=== PATIENT | female | born 1965 | race Caucasian/White ===

== ENCOUNTER 2016-11-20 06:42 | Inpatient (IN) | payer OTHER ==
[2016-11-17 08:52] VITALS: BMI 25.8
[2016-11-20] MEDS ORDERED: GENTAMICIN SO4 80 MG/2 ML VIAL ONE ×2 (07:32→11:58)
[2016-11-20] MEDS ORDERED: BUPIVACAINE HCL/PF 2.5 MG/ML - 30 ML VIAL IJ ONE (07:32)
[2016-11-20] MEDS ORDERED: LIDOCAINE HCL 1%, 10 MG/ML (20ML VIAL) ONE ×2 (07:32→07:50)
[2016-11-20] MEDS ORDERED: ceFAZolin SODIUM 1 GM VIAL ONE ×3 (07:32→13:41)
[2016-11-20] MEDS ORDERED: LIDOCAINE 1%-EPI 1:100,000 30 ML MDV IJ ONE (07:34)
[2016-11-20] MEDS ORDERED: EPINEPHrine 1:1,000 1 MG/1 ML - 30ML VIAL (INJECTION) ONE (07:50)
[2016-11-20] MEDS ORDERED: HEPARIN NA (PORCINE) 5,000 UNITS/ML 1ML VIAL ONE (08:03)
[2016-11-20] MEDS ORDERED: ROCURONIUM BROMIDE 50 MG/5 ML VIAL ONE ×3 (08:12→12:28)
[2016-11-20] MEDS ORDERED: MIDAZOLAM HCL 2 MG/2 ML SINGLE DOSE VIAL ONE ×3 (08:12)
[2016-11-20] MEDS ORDERED: PROPOFOL 20 ML ONE ×2 (08:12→16:14)
[2016-11-20] MEDS ORDERED: HEPARIN NA (PORCINE) 5,000 UNITS/ML 1ML VIAL SQ ONE ×3 (08:17)
[2016-11-20] MEDS ORDERED: HYDROmorphone HCL/PF 1 MG/ML VIAL (FOR PYXIS CHARGING ONLY) ONE ×3 (12:26→15:07)
[2016-11-20] MEDS ORDERED: HYDROmorphone *PCA* 10MG/50ML DISP.SYRIN PCA ONE ×2 (16:12→16:27)
[2016-11-20] MEDS ORDERED: ONDANSETRON 4 MG/2 ML VIAL IVPUSH PRN (18:56)
[2016-11-20] MEDS ORDERED: PROMETHAZINE HCL 25 MG/1 ML VIAL IVPUSH ONE (18:59)
[2016-11-20] MEDS ORDERED: LACTATED RINGERS SOLUTION 1,000 ML IV SCH (19:00)
[2016-11-20] MEDS ORDERED: PROMETHAZINE HCL 25 MG/1 ML VIAL ONE (19:16)
[2016-11-20] MEDS: ACETAMINOPHEN 1000 MG/100 ML VIAL (NON FORMULARY) IVPB PRN (19:30)
[2016-11-20] MEDS ORDERED: oxyCODONE HCL 5 MG TABLET PO PRN (19:57)
[2016-11-20] MEDS: HYDROmorphone *PCA* 10MG/50ML DISP.SYRIN PCA SCH (20:00)
[2016-11-20] MEDS ORDERED: ENOXAPARIN NA (PORCINE) 40 MG/0.4 ML DISP.SYRIN SQ ONE (20:30)
[2016-11-21] MEDS ORDERED: TRIMETHOBENZAMIDE HCL 200MG/2ML INJ IM PRN (00:29)
[2016-11-21] MEDS: CEFAZOLIN 1 GM in DEXTROSE 5%-WATER - 50 ML IVPB SCH ×3 (01:08→22:41)
[2016-11-21] MEDS: ACETAMINOPHEN 1000 MG/100 ML VIAL (NON FORMULARY) IVPB PRN (08:15)
[2016-11-21] MEDS: DOXYCYCLINE HYCLATE 100 MG CAPSULE PO SCH ×2 (10:00→19:17)
[2016-11-21] MEDS: oxyCODONE HCL 10 MG SUSTAINED ACTING TABLET PO SCH ×2 (11:15→21:38)
[2016-11-21] MEDS: DOCUSATE SODIUM 100 MG CAPSULE (FP) PO SCH ×2 (12:00→21:38)
[2016-11-21] MEDS ORDERED: oxyCODONE HCL 5 MG TABLET PO PRN (12:00)
[2016-11-21] MEDS ORDERED: PROMETHAZINE HCL 25 MG/1 ML VIAL IVPUSH PRN (12:59)
[2016-11-21] MEDS: oxyCODONE HCL 5 MG TABLET PO PRN ×3 (14:59→19:17)
[2016-11-21] MEDS: HYDROmorphone *PCA* 10MG/50ML DISP.SYRIN PCA SCH (19:09)
[2016-11-21] MEDS: diphenhydrAMINE HCL 25 MG CAPSULE (FP) PO PRN (19:17)
[2016-11-21] MEDS ORDERED: ENOXAPARIN NA (PORCINE) 40 MG/0.4 ML DISP.SYRIN SQ SCH (22:30)
[2016-11-21] MEDS ORDERED: CEFAZOLIN (PRE-DOCKED) 1 GM in DEXTROSE 5%-WATER - 50 ML IVPB SCH (22:30)
[2016-11-21] MEDS: ACETAMINOPHEN 325 MG TABLET (FP) PO PRN (22:41)
[2016-11-22] MEDS: diphenhydrAMINE HCL 25 MG CAPSULE (FP) PO PRN ×3 (02:26→15:45)
[2016-11-22] MEDS: oxyCODONE HCL 5 MG TABLET PO PRN ×2 (02:30→18:31)
[2016-11-22] MEDS: CEFAZOLIN 1 GM in DEXTROSE 5%-WATER - 50 ML IVPB SCH ×2 (06:14→14:33)
[2016-11-22] MEDS: DOCUSATE SODIUM 100 MG CAPSULE (FP) PO SCH (09:40)
[2016-11-22] MEDS: oxyCODONE HCL 10 MG SUSTAINED ACTING TABLET PO SCH (09:40)
[2016-11-22] MEDS: DOXYCYCLINE HYCLATE 100 MG CAPSULE PO SCH ×2 (09:41→18:32)
[2016-11-22] MEDS: ACETAMINOPHEN 325 MG TABLET (FP) PO PRN ×2 (09:48→15:45)
[2016-11-22 14:24] VITALS: BP 103/62; PULSE 103; TEMP 99.2
--- NOTE | 2016-11-22 16:52 | PN ---
Progress Note (short form) - Note Progress Note: Patient doing well. Afebrile with stable vital signs. Patient feels well. Vivar controlled with oxycontin regularly and oxycodone for breakthrough pain. Patient ambulating today. Pain and nausea are improved. On exam: dressings changed, all wounds clean, drains all serosanguinous. No signs of infection, no hematoma, no seroma. Compression garment replaced. No tenderness on palpation of calves, no significant lower extremity swelling. Plan: Patient was admitted for post op pain and nausea. Good oral intake. Pain improved with PSYCH RN, then transitioned to Oxycontin bid with oxycodone for breakthrough pain. Instructions provided both verbal and written. Patient advised to call with any questions.
[2016-11-22] MEDS ORDERED: diphenhydrAMINE HCL 25 MG CAPSULE (FP) PO ONE (18:30)
[2016-11-22] MEDS ORDERED: ENOXAPARIN NA (PORCINE) 40 MG/0.4 ML DISP.SYRIN SQ ONE (20:00)
--- NOTE | 2016-11-23 08:14 | SURG ---
Surgery [facility] Note Wil[facility] Weaver: José Luis Neal PA-C Date of Service: 11/20/16 Diagnosis: History of breast cancer, breast asymmetry after breast surgery Procedure: Bilateral revision of reconstructed breasts with implant exchange, capsulotomy, fat grafting I was present for the entirety of the operative procedure. For further detail, please refer to operative report. Visit type - Case Type Case Type: Scheduled Admission - New patient This patient is new to me today: Yes Date on this admission: 11/23/16
--- NOTE | 2016-11-25 11:21 | PATH ---
Surgical Pathology Report Patient Name: LETI ALMEIDA Med. Rec. #: [id number] /Age/Gender: 1965 (Age: 51) / F Account: [id number] [facility] Taken: 11/20/2016 Received: 11/20/2016 Reported: 11/25/2016 Physicians: Bhavana Patricia M.D. Specimen(s) Received A: BREAST EXPLANTS B: ABDOMINAL SKIN AND TISSUE C: LEFT BREAST SKIN AND TISSUE Clinical History History of breast cancer, breast asymmetry, cosmetic Final Diagnosis A. BREAST EXPLANTS: IMPLANTS x2, DESCRIBED (GROSS EXAM). B. ABDOMINAL SKIN AND TISSUE: SKIN AND SUBCUTANEOUS TISSUE (GROSS EXAM). C. SKIN AND TISSUE, LEFT BREAST: BENIGN SKIN. Electronically Signed Sameer Nicole M.D. Gross Description A. Received in formalin labeled "breast explants" are 2 clear, rubbery, disc-shaped objects, consistent with breast implants. The specimen is average 15 cm in diameter and 4 centimeters in depth. No soft tissue is present. No sections are submitted, gross only. B. Received in formalin labeled "abdominal skin and tissue" is a 687 g, 30.0 x 2.5 x 2.0 cm aggregate of multiple smith, irregular, unoriented portions of skin with underlying soft tissue. The epidermal surfaces are unremarkable. Sectioning reveals homogeneous yellow, smooth fat. No lesions are identified. No sections are submitted, gross only. C. Received in formalin labeled "left breast skin and tissue" are 2 smith, irregular, unoriented portions of skin measuring 1.0 x 0.4 x 0.2 cm and 1.5 x 0.8 x 0.1 cm. No lesions are identified. The specimens are sectioned and promotions representative sections are submitted in one cassette. 11/23/201611/23/2016
--- NOTE | 2017-02-01 10:39 | OP ---
DATE OF OPERATION: 11/21/2016 PREOPERATIVE DIAGNOSES: Breast asymmetry, capsular contracture, more laxity left reconstructed breast versus right reconstructed breast, abdominal skin excess, diastasis recti, localized adiposity, abdomen and flanks, localized adiposity, right axillary fold area. POSTOPERATIVE DIAGNOSES: Breast asymmetry, capsular contracture, more laxity left reconstructed breast versus right reconstructed breast, abdominal skin excess, diastasis recti, localized adiposity, abdomen and flanks, localized adiposity, right axillary fold area. PROCEDURE: Revision bilateral breast reconstruction with fat grafting to bilateral reconstructed breasts from an abdomen and flank donor site, removal of bilateral breast implants, replacement with bilateral silicone breast implants placed under the muscle, bilateral breast capsulotomy as well as capsulorrhaphy, placement of bilateral breast acellular dermal matrix, abdominoplasty with rectus plication and umbilical relocation, liposuction of the abdomen and bilateral flanks, liposuction of the right axillary fat pad, fat grafting to bilateral buttocks and lateral thighs. SURGEON: Bhavana Patricia MD AUDIT MANAGER: CHELY Ford INDICATION FOR PROCEDURE: The patient is status post bilateral mastectomies for breast cancer with tissue model builder display, reconstruction with subsequent exchange of her implants. Patient feels her left breast implant pocket is too large and would like it to be higher and tighter and would like her bilateral implants to be raised. Consent was obtained for her surgery and risks reviewed which include, but are not limited to: Infection, bleeding, persistent asymmetry, need for further surgery, fluid collection, capsular contracture, blood clot in her leg, groins, and her lung. All questions were answered. Patient and her daughter helped choose implant size and they agreed to proceed. IMPLANTS: Left and right breast implants 410 anatomic textured 670-mL implants. Left implant reference number [id number], serial number [id number]. Right implant reference number [id number], serial number [id number]. Contour large perforated AlloDerm Select placed bilaterally. Left side lot number [id number], expiration August 2018, reference number [id number]. Right side lot [id number], expiration August 2018, reference number [id number]. DESCRIPTION OF PROCEDURE: Patient was taken to the operating room and placed supine on the operating room table. Timeout procedure was performed. Anesthesia induced general endotracheal anesthesia. Prophylactic intravenous antibiotics were provided. TEDs and sequential compression devices were placed on the bilateral lower extremities for deep venous thrombosis prophylaxis. Attention was first turned to the breasts. Left breast inferolateral incision was made. Skin excision was planned in this area and passed off the table and sent for pathology. Implant was removed and passed off the field and sent for pathology. The implant was intact. The right scar was opened. The right breast implant was removed and passed off the field and sent for pathology. Bilateral superomedial capsulotomy was performed with electrocautery with care to protect the overlying skin. The wound was copiously irrigated with Ancef, bacitracin, gentamicin irrigation. Lateral inferior capsulorrhaphy was performed with sqaspv-jq-mrlkp 0 buried PDS and a 2nd layer of 2-0 buried ikqrdx-pi-orhln PDS sutures. More capsulorrhaphy was performed on the left side since this had more laxity than the right side. The 410 anatomic breast implant size 670 mL was chosen. This would be reinforced inferiorly with acellular dermal matrix which was soaked in 2 water baths and placed in the wound. AlloDerm Contour large perforated was placed on both the left and right sides and sutured with horizontal mattress 2-0 Vicryl sutures. Gloves were changed. Hemostasis was achieved, antibiotic irrigation utilized, and the 410 anatomic implants were placed in the proper orientation within the implant pocket with an inferior AlloDerm sheet bilaterally. Bilateral breast wounds were closed with a deep layer of 2-0 Vicryl sutures, interrupted intradermal buried 3-0 Monocryl, and running 4-0 Monocryl in a subcuticular manner. Wounds were reinforced with simple interrupted 4-0 nylon sutures. Tumescent was instilled through an incision made with a No. 15 blade, 2 in the right axillary fat roll. Approximately 100 mL of tumescent was used and 50 mL of fat was liposuctioned with the 4-mm cannula with care to preserve underlying structures. Attention was then turned to the abdominoplasty where the liposuction sites were incised with a No. 15 blade in the planned abdominoplasty incisions. Abdominoplasty incision was made with a No. 10 blade and a skin flap was raised to the xiphoid. Umbilicus was first incised with a No. 11 blade. No hernias were identified. Rectus plication was performed both superior and inferiorly with qddcmw-wa-hdyfb 0 PDS in a buried manner and a superficial layer of 2 PDS running horizontal mattress sutures. Hemostasis was achieved with electrocautery. 15 degrees to take tension off the wound. Drains were placed in the bilateral pelvic area and sutured with 3-0 nylon sutures. Left abdominal skin and right abdominal skin were excised and passed off the field. They measured approximately 340 g each. The umbilicus was brought through an inverted "U" incision slightly superior on the anterior-superior iliac spine and in the midline. Abdominoplasty wound was closed with a deep layer of buried 2-0 Vicryl sutures in the Herb fascia, interrupted intradermal buried 3-0 Monocryl, running 4-0 Monocryl in a subcuticular manner. The V-Loc 120 was used to help reinforce the lateral and central areas as well. Simple interrupted 4-0 nylon sutures were used to reinforce the areas of maximal tension. Umbilicus was sutured with interrupted intradermal buried 3-0 Monocryl, running 4-0 Monocryl in a subcuticular manner, and simple interrupted 4-0 nylon sutures. Prior to the abdominoplasty, during the liposuction approximately 2 L of tumescent was utilized and liposuction aspirate was approximately 1950 mL (approximately 1750 mL of fat). Body jet was used to process the fat. No. 15 blades were used to make the incision and fat grafting was performed in the bilateral breast area, more on the left than the right since the left had a larger implant pocket. Left fat grafting was 165 mL, right fat grafting 110 mL with care to protect the underlying implant pocket. Fat grafting sites were sutured with simple interrupted 5-0 nylon sutures. Bilateral breast wounds and abdominoplasty wounds were covered with Dermabond. Xeroform was placed on the umbilicus, 4 x 4 gauze, ABD pads. Please note that the patient was to have planned upper buttock and back liposuction. However, her blood pressure was low and Anesthesia recommended injecting the harvested fat and not going prone with the patient due to her blood pressure. Of note, patient was stable throughout the surgery. Patient was placed in the lateral decubitus position on either side and the fat which was harvested from the abdomen was injected into the buttock from a lazy lateral decubitus position on each side as well as the lateral thighs. The harvested fat was injected, 240 mL on the left side and 240 mL on the right side, through an inferior gluteal incision made with a 15 blade as well as a flank incision. Care was taken to remain superficial. Lateral thigh and lateral buttock contour was excellent. These wounds were closed with simple interrupted 5-0 nylon sutures and covered with Dermabond, Telfa, and Tegaderms. Patient was placed supine. The patient was extubated and taken to the recovery room in stable condition postoperatively. Bj [id number]
--- NOTE | 2017-02-01 11:31 | OP ---
DATE OF OPERATION: 11/21/2016 PREOPERATIVE DIAGNOSIS: 1. Status post mastectomy with bilateral breast reconstruction with asymmetry and a ptotic left breast compared to the right. Patient desires more superior fullness with her implants and a slightly larger implant. 2. Capsular contracture bilateral breasts. 3. Excess abdominal skin with localized adiposity of abdomen and flanks and diastasis recti. 4. Patient desires improved contour of buttock and hips. POSTOPERATIVE DIAGNOSIS: 1. Status post mastectomy with bilateral breast reconstruction with asymmetry and a ptotic left breast compared to the right. Patient desires more superior fullness with her implants and a slightly larger implant. 2. Capsular contracture bilateral breasts. 3. Excess abdominal skin with localized adiposity of abdomen and flanks and diastasis recti. 4. Patient desires improved contour of buttock and hips. PROCEDURE: 1. Fat grafting bilateral superomedial breasts for improved contour. 2. Revision of bilateral reconstructed breasts with removal of breast implants, replacement of silicone breast implants; lateral capsulorrhaphy, left side greater than right side, for medialization of the implant pocket; bilateral capsulotomy superomedially of the implant; skin excision of left inferolateral breast implant pocket versus the right; acellular dermal matrix placement of bilateral breasts; abdominoplasty with rectus plication in umbilical location; liposuction of abdomen and flanks; fat grafting bilateral lateral thighs of 240 mL bilaterally of fat grafting of the bilateral superomedial breast, left side 165 mL, right side 110 mL. 3. Liposuction of right axillary fat pad. SURGEON: Chapito Patricia M.D. DIGITAL STRATEGY DIRECTOR: Ge Ford ANESTHESIA: General endotracheal anesthesia. SPECIMENS: Bilateral breast implants, abdominal skin and tissue bilaterally, left breast skin and tissue. INDICATION FOR PROCEDURE: The patient is status post bilateral mastectomy after breast cancer was found in a breast reduction specimen with tissue contract associate placement in exchange for implants. Patient feels her left breast is more ptotic than the right and desires more support and a larger breast implant, since she does not feel her implant fills her breast pocket, as the tissues have relaxed over time. Consent was obtained for revision of bilateral breast reconstruction, fat grafting to bilateral reconstructed breasts for possible abdomen/flank/back donor sites, removal of bilateral breast implants and replacement with bilateral silicone breast implants, possible bilateral breast capsulectomy and/or capsulotomy and/or capsulorrhaphy, possible placement of bilateral or left or right acellular dermal matrix to breast, abdominoplasty with rectus plication and umbilical relocation, liposuction of abdomen and flanks bilaterally and upper buttock and liposuction in mid back and right axillary fat pad with fat grafting to bilateral buttocks. Risks of the procedure were reviewed and including but not limited to infection, bleeding, scarring, fluid collection, blood clots in the leg going to lung for which the patient will be given chemotherapy prophylaxis with Lovenox postoperatively and heparin pre- and postoperatively, wound healing problems, capsular contracture, persistent asymmetry, fluid collection, pain, need to fat graft the buttock in the future because not all the fat stays over time. All the patient's questions were answered, and she agreed to proceed. DESCRIPTION OF PROCEDURE: Patient was taken to the operating room and placed supine on the operating room table. Timeout procedure was performed. Anesthesia induced general endotracheal anesthesia. Prophylactic intravenous antibiotics were provided. Attention was first turned to the excision of the inferolateral tissue, left greater than right, of the breast which was excised with number 15 blade and then passed off the field and sent for pathology. Capsule sent for pathology. There was more tissue. There was no skin excision on the right side, but skin excision on the left side performed. Breast implants 600 mL were removed and passed off the field and sent for pathology. Superomedial breast capsulotomy was performed to medialize the area. Inferolateral capsulorrhaphy with buried swwsct-bs-ysrbh 0 PDS and superficial jmxsjr-co-ufwkx 2-0 PDS was performed to medialize the breast implant. Bilateral breast implants were placed after irrigating the pockets with Ancef, gentamicin, and bacitracin triple antibiotic solution. Gloves were changed. This was Natrelle 410 cohesive anatomic implant 670 mL placed bilaterally (left implant reference number [id number] serial number [id number], right side reference number [id number] serial number [id number]). Implant pockets were temporarily closed, and patient was sat up and with good symmetry. Patient was replaced supine. Implant pockets were closed with deep layer of 2-0 Vicryl sutures, interrupted interdermal buried 3-0 Monocryl, running 4-0 Monocryl in subcuticular manner, as well as simple interrupted 4-0 nylon sutures. Attention was then turned to liposuction of right axillary fat roll with small incision made with a 15 blade. Small amount of tumescent was utilized and axillary fat roll was aspirated. Body-Jet liposuction system was used for this procedure. At the conclusion of the bilateral breast reconstruction, liposuction was performed on the abdomen and bilateral flanks. The liposuction entry sites were created with a number 15 blade which were placed within the planned abdominoplasty incision. Tumescent was infiltrated and liposuction was performed with a Body-Jet. Approximately 2 L of tumescent was infiltrated and approximately 1.75 mL of fat was aspirated (total aspirate was 2000 mL, 250 mL of serosanguineous fluid were aspirated). The fat was processed for fat grafting to the bilateral breasts. A number 15 blade was used to make entry points for the fat grafting cannula, and left superomedial breast was fat grafted with 165 mL and right superomedial breast was fat grafted with 110 mL. More was placed on the left side, which had more skin per patient report. Please note that acellular dermal matrix was used to support the implant pocket bilaterally; this was sutured to the implant pocket with horizontal mattress 2-0 Vicryl sutures. Bilateral Alloderm with a contour large perforated on the right side, lot number [id number], expiration 08/2018, reference number [id number], left side was lot [id number], expiration 08/2018, reference number [id number]. These were soaked in 2 water baths prior to placement into the breast implant pockets. Breast wounds were reinforced with Dermabond, covered with 4x4, gauze, and ABD pads. Attention was then turned to the abdominoplasty, where the inferior abdominoplasty incision was incised with number 10 blade and the umbilicus was incised with a number 11 blade. Abdominoplasty skin flap was raised up to the xiphoid. Rectus plication was performed in 2 layers with a deep layer of jonxxc-ct-rvhou buried 0 PDS and running horizontal mattress 2-0 PDS. This provided good contour. There were no hernias. Bed was flexed approximately 15 degrees. Drains were placed in lateral pubic area, one on each side, and sutured with 3-0 nylon suture. Right and left abdominal skin was excised for good contour, passed off the field, and sent to Pathology. CHAPITO PATRICIA M.D. MR/[id number]
== END 2016-11-22 22:15 | disposition home or self-care (01) | DRG 581 ==
LOC: FASU 06:42 → FM/S 20:07
PROVIDERS: ADMIT Surgery; ATTEND Surgery
PROC: 0HWU0JZ Revision of Synthetic Substitute in Left Breast, Open Approach (ICD-10-PCS; principal; 2016-11-21)
PROC: 0JR Subcutaneous Tissue and Fascia, Replacement (ICD-10-PCS; 2016-11-21)
PROC: 0HWT0JZ Revision of Synthetic Substitute in Right Breast, Open Approach (ICD-10-PCS; 2016-11-21)
PROC: 0HNV0ZZ Release Bilateral Breast, Open Approach (ICD-10-PCS; 2016-11-21)
PROC: 0J083ZZ Alteration of Abdomen Subcutaneous Tissue and Fascia, Percutaneous Approach (ICD-10-PCS; 2016-11-21)
DX: N64.89 Other specified disorders of breast (principal); Z85.3 Personal history of malignant neoplasm of breast
CPT/HCPCS: 88300-TC; 88302-TC; 94760; J1644

== ENCOUNTER 2017-09-14 00:46 | Emergency (ER) | payer OTHER ==
--- NOTE | 2017-09-14 00:52 | PDOC ---
History of Present Illness - General Chief Complaint: Pain, Acute Stated Complaint: CHEST CAVITY PAIN X 2 DAYS Time Seen by Provider: 09/14/17 00:51 - History of Present Illness Initial Comments: This 52-year-old woman with a history of breast carcinoma and 2 weeks s/p breast reconstruction surgery presents with 2 day history of pleuritic chest pain. Patient states that as she was walking in a store yesterday afternoon, she had sudden onset of pleuritic chest pain in the mid substernal area. The severe pain lasted approximately 5 minutes and resolved spontaneously. Since then, she has had intermittent episodes of this pain which occurs in the same area and lasts approximately same period of time. Pain is not related to position or exertion. She does feel shortness of breath during the times of pain but otherwise is breathing normally. She has not had any fever/chills, cough, lower extremity pain or swelling. She has not been on any anticoagulation since her most recent surgery. No previous history of thromboembolic disorder. Past History - Past Medical History Allergies/Adverse Reactions: Allergies Allergy/AdvReac Type Severity Reaction Status Date / Time cat dander Allergy Intermediate NASAL Verified 08/26/17 10:23 CONGESTION/SNEEZING kiwi Allergy Intermediate Verified 08/26/17 10:23 No Known Drug Allergies Allergy Verified 08/26/17 10:23 Home Medications: Ambulatory Orders Oxycodone HCl/Acetaminophen [Oxycodone-Acetaminophen 10-325] 1 each PO TID PRN 09/30/15 Cefadroxil [Cefadroxil] 500 mg PO DAILY 09/14/17 Clindamycin [Cleocin -] 600 mg PO Q6H 09/14/17 Anemia: No Asthma: No Cancer: Yes (LEFT BREAST CA 2015,SX--NO CHEMO/RT) Cardiac Disorders: No CVA: No COPD: No CHF: No Dementia: No Diabetes: No GI Disorders: No Disorders: No HTN: No Hypercholesterolemia: No Liver Disease: No Seizures: No Thyroid Disease: No - Surgical History Abdominal Surgery: Yes (SEE BELOW) Appendectomy: No Cardiac Surgery: No Cholecystectomy: No Lung Surgery: No Neurologic Surgery: No Orthopedic Surgery: No - Suicide/Smoking/Psychosocial Hx Smoking History: Never smoked Have you smoked in the past 12 months: No Hx Alcohol Use: Yes (VERY RARE) Drug/Substance Use Hx: Yes Substance Use Type: Alcohol, Prescribed Hx Substance Use Treatment: No Review of Systems - Review of Systems Able to Perform ROS?: Yes Comments:: 12 point review of systems is negative except for what is noted in the history of present illness *Physical Exam - Physical Exam Comments: GENERAL: Adult female, alert and oriented 3, speaking in full sentences without respiratory distress Vital signs as noted: Heart rate 82/minute; pulse oximetry on room air 100% respiratory rate 16/minute HEAD: Normal with no signs of trauma. EYES: PERRLA, EOMI, sclera anicteric, conjunctiva clear. ENT: Ears normal, nares patent, oropharynx clear without exudates. Moist mucous membranes. NECK: Normal range of motion, supple without lymphadenopathy, JVD, or masses. CHEST WALL: Intact surgical wound lateral and inferior aspects of left breast, healing well No erythema/tenderness/discharge from incision; no fluctuance LUNGS: Breath sounds equal, clear to auscultation bilaterally. No wheezes, and no crackles. HEART:Regular rate and rhythm, normal S1 and S2 without murmur, rub or gallop. ABDOMEN:.normal bowel sounds No guarding,tenderness or rebound.No masses No distention. EXTREMITIES: Normal range of motion, no edema. No clubbing or cyanosis. No erythema, or tenderness. NEUROLOGICAL: Cranial nerves II through XII grossly intact. Normal speech. No focal neurological deficits. MUSCULOSKELETAL: Back non-tender to palpation, no CVA tenderness SKIN: Warm, Dry, normal turgor, no rashes or lesions noted. ED Treatment Course - LABORATORY CBC & Chemistry Diagram: 09/14/17 01:00 09/14/17 01:00 Progress Note - Progress Note Progress Note: CT angiogram of the chest performed to rule out pulmonary embolism or other acute vascular abnormalities. Study is normal without evidence of thromboembolic process. Results discussed with patient and with her plastic surgeon, Dr. Patricia. She should follow-up with her surgeon as scheduled. She should return to the emergency room if she has worsening of her pain or develops shortness of breath/ cough/fever *DC/Admit/Observation/Transfer Diagnosis at time of Disposition: Atypical chest pain - Discharge Dispostion Disposition: HOME Condition at time of disposition: Stable - Referrals Referrals: Bhavana Patricia MD [Staff Physician] - - Patient Instructions Printed Discharge Instructions: DI for Atypical Chest Pain Additional Instructions: Continue medications as prescribed Follow-up with as arranged Return to ER if you have recurrent severe chest pain or experience shortness of breath/fever/cough - Post Discharge Activity
[2017-09-14 01:08] VITALS: BP 117/80; PULSE 82; TEMP 97.8; BMI 23.8
[2017-09-14 02:10] LABS: BASO % 0.6 % (0-2.0); EOS % 2.8 % (0-4.5); HEMATOCRIT 35.6 % (32.4-45.2); HEMOGLOBIN 12.2 GM/dL (10.7-15.3); LYMPH % 35.9 % (8-40); MCH 32.7 pg (25.7-33.7); MCHC 34.4 g/dl (32.0-36.0); MEAN CELL VOLUME 95.2 fl (80-96); MEAN PLT VOLUME 7.4 fl (7.5-11.1); MONO % 7.5 % (3.8-10.2); NEUT % 53.2 % (42.8-82.8); PLATELET COUNT 388 K/MM3 (134-434); RBC 3.74 M/mm3 (3.60-5.2); RDW 13.8 % (11.6-15.6); WHITE BLOOD COUNT 6.1 K/mm3 (4.0-10.0)
[2017-09-14 02:14] LABS: URINE APPEARANCE CLEAR; URINE BILIRUBIN NEGATIVE (NEGATIVE); URINE BLOOD NEGATIVE (NEGATIVE); URINE COLOR LTYELLOW; URINE GLUCOSE (UA) NEGATIVE (NEGATIVE); URINE KETONE NEGATIVE (NEGATIVE); URINE NITRITE NEGATIVE (NEGATIVE); URINE PROTEIN NEGATIVE (NEGATIVE); URINE UROBILINOGEN NEGATIVE mg/dL (0.2-1.0)
[2017-09-14 02:21] LABS: URINE LEUK ESTERASE 2+ (NEGATIVE)
[2017-09-14 02:22] LABS: EPI CELLS FEW /HPF (FEW); URINE BACTERIA FEW /hpf (NONE SEEN); URINE MUCUS FEW
[2017-09-14 02:30] LABS: INR 1.05 (0.82-1.09); PROTHROMBIN TIME (PATIENT) 11.9 SEC (9.98-11.88)
[2017-09-14 02:42] LABS: ALBUMIN 3.4 g/dl (3.4-5.0); ANION GAP 12 (8-16); BILIRUBIN,TOTAL 0.2 mg/dL (0.2-1.0); BLOOD UREA NITROGEN 13 mg/dL (7-18); CALCIUM 8.2 mg/dL (8.5-10.1); CHLORIDE 104 mmol/L (98-107); CO2 25 mmol/L (21-32); CREATININE 0.7 mg/dL (0.55-1.02); GLUCOSE,RANDOM 79 mg/dL (74-106); POTASSIUM 4.3 mmol/L (3.5-5.1); SGOT/AST 19 U/L (15-37); SGPT/ALT 23 U/L (12-78); SODIUM 141 mmol/L (136-145); TOT PROT 7.5 g/dl (6.4-8.2)
[2017-09-14 02:45] LABS: ALK PHOS 170 U/L (45-117)
== END 2017-09-14 03:55 | disposition home or self-care (01) ==
LOC: FER 00:46
DX: R07.89 Other chest pain (principal); Z85.3 Personal history of malignant neoplasm of breast
CPT/HCPCS: 36415; 71275-TC; 80053; 81003; 81015; 82550; 84484; 85025; 85610; 99282-25

== ENCOUNTER 2017-09-16 14:39 | Inpatient (IN) | payer OTHER ==
--- NOTE | 2017-09-16 14:46 | PDOC ---
History of Present Illness - General Chief Complaint: Wound Stated Complaint: left breast pain,redness and swelling s/p surgery Time Seen by Provider: 09/16/17 14:42 History Source: Patient - History of Present Illness Initial Comments: 52 year old female with PMH of breast cancer (stage I s/p mastectomy (years prior) 17 days s/p implant/ cosmetic revision of left breast) presenting with chills, pain, swelling, and redness of her left breast surgical site. She presented to our ED on Wednesday complaining of chest pain and was CT scanned for PE (negative) then sent home. She was placed on Clyndamicin for a few days as well and stated that her chest pain slightly improved since Wednesday but still has chills. During her visit today with her plastic surgeon there was concern for a skin/ soft tissue infection of the left breast surgical site so she was sent to the ED for further evaluation. Denies objective fevers, nausea, vomiting , diarrhea, drainage from the surgical site, or other sick symptoms. 09/16/17 15:04 Past History - Past Medical History Allergies/Adverse Reactions: Allergies Allergy/AdvReac Type Severity Reaction Status Date / Time cat dander Allergy Intermediate NASAL Verified 09/16/17 14:40 CONGESTION/SNEEZING kiwi Allergy Intermediate Verified 09/16/17 14:40 No Known Drug Allergies Allergy Verified 09/16/17 14:40 Home Medications: Ambulatory Orders Oxycodone HCl/Acetaminophen [Oxycodone-Acetaminophen 10-325] 1 each PO TID PRN 09/30/15 Cefadroxil [Cefadroxil] 500 mg PO DAILY 09/14/17 Anemia: No Asthma: No Cancer: Yes (LEFT BREAST CA 2015,SX--NO CHEMO/RT) Cardiac Disorders: No CVA: No COPD: No CHF: No Dementia: No Diabetes: No GI Disorders: No Disorders: No HTN: No Hypercholesterolemia: No Liver Disease: No Seizures: No Thyroid Disease: No - Surgical History Abdominal Surgery: Yes (SEE BELOW) Appendectomy: No Cardiac Surgery: No Cholecystectomy: No Lung Surgery: No Neurologic Surgery: No Orthopedic Surgery: No - Suicide/Smoking/Psychosocial Hx Smoking History: Never smoked Have you smoked in the past 12 months: No Hx Alcohol Use: Yes (VERY RARE) Drug/Substance Use Hx: Yes Substance Use Type: Alcohol, Prescribed Hx Substance Use Treatment: No Review of Systems - Review of Systems Constitutional: Yes: Chills. No: Diaphoresis, Fever, Loss of Appetite HEENTM: No: Eye Pain, Recent change in vision Respiratory: No: Cough, Orthopnea, Shortness of Breath Cardiac (ROS): No: Chest Pain, Edema, Irregular Heart Rate ABD/GI: No: Constipated, Diarrhea, Nausea, Poor Appetite : No: Burning, Dysuria, Discharge Musculoskeletal: No: Back Pain, Joint Pain Integumentary: Yes: Lesions, Lumps. No: Bruising, Change in Color Neurological: No: Headache, Numbness, Paresthesia *Physical Exam - Physical Exam General Appearance: Yes: Nourished, Appropriately Dressed. No: Apparent Distress HEENT: positive: EOMI, MIKI, Normal ENT Inspection, Normal Voice Neck: positive: Trachea midline, Normal Thyroid, Supple. negative: Tender, Rigid Respiratory/Chest: positive: Chest Tender (Tenderness pf left lateral breast olivier-incision area. Slight erythema, no obvious fluctuance, and no drainage or wound dehicence. ), Lungs Clear, Normal Breath Sounds. negative: Respiratory Distress, Accessory Muscle Use Cardiovascular: positive: Regular Rhythm, Regular Rate Gastrointestinal/Abdominal: positive: Normal Bowel Sounds, Flat, Soft. negative : Tender Musculoskeletal: positive: Normal Inspection. negative: Decreased Range of Motion Extremity: positive: Normal Capillary Refill, Normal Inspection, Normal Range of Motion. negative: Tender Integumentary: positive: Dry, Warm. 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 deep space infection. CT from a few days prior did not demonstrate any soft tissue change in that region. Afebrile here but breast is tender on exam and overall picture of chills at home make this a concerning presentation in the post op setting. Given vancomycin. CBC not demonstrating leukocytosis. Breast US pending. Will Give vancomycin 1 G and 2nd Liter of fluid then admit under Dr. Curiel. 09/16/17 16:29 *DC/Admit/Observation/Transfer Diagnosis at time of Disposition: Cellulitis Qualifiers: Site of cellulitis: other site Qualified Code(s): L03.818 - Cellulitis of other sites - Discharge Dispostion Condition at time of disposition: Fair Admit: Yes - Referrals - Patient Instructions - Post Discharge Activity
[2017-09-16] MEDS ORDERED: SODIUM CHLORIDE 1,000 ML IV STA (14:52)
[2017-09-16] MEDS ORDERED: VANCOMYCIN 1,250 MG in DEXTROSE 5%-WATER - 250 ML IVPB ONE (15:22)
[2017-09-16] MEDS ORDERED: VANCOMYCIN 1,000 MG in DEXTROSE 5%-WATER - 250 ML IVPB ONE (15:25)
--- NOTE | 2017-09-16 15:42 | PDOC ---
Attending Attestation - HPI HPI: 09/16/17 15:52 The patient is a 52 year old female with past medical history of stage 1 breast cancer (s/p mastectomy and is 17 days post op L breast reconstruction) who was sent to the ED from her plastic surgeons office for septic workup.Today the patient was being seen at her surgeons office where the surgeon noticed increased redness to the area. The patient denies experiencing any more pain to the area. She reports having some chills the past few days but denies any fevers. The patient additionally reports a foul smell from her left breast today but denies any discharge or drainage. Surgeon: Bhavana Patricia - Physicial Exam PE: 09/16/17 15:53 GENERAL: Awake, alert, and fully oriented, in no acute distress HEAD: No signs of trauma NECK: Normal ROM, supple, no lymphadenopathy, JVD, or masses BREAST: Swelling and mild erythema to L breast. EXTREMITIES: Normal range of motion, no edema. No clubbing or cyanosis. No cords, erythema, or tenderness NEUROLOGICAL: Cranial nerves II through XII grossly intact. Normal speech, normal gait SKIN: Warm, Dry, normal turgor, no rashes or lesions noted. - Medical Decision Making 09/16/17 15:54 Documentation prepared by Lesli Wise, acting as medical office worker for Domingo Denton MD. Phone call placed to Dr. Lora, case discussed and will start patient on 1g of Vancomycin. 09/16/17 16:19 Microblog sent to hospitalist. Awaiting call back <Lesli Wise - Last Filed: 09/16/17 16:19> - Resident Resident Name: Yuval Chapin - ED Attending Attestation I have performed the following: I have examined & evaluated the patient, The case was reviewed & discussed with the resident, I agree w/resident's findings & plan, Exceptions are as noted <Domingo Denton - Last Filed: 09/16/17 16:33> Discharge Disposition - Discharge Dispostion Last Admission D/C Date: 11/22/16 Admit: Yes <Domingo Denton - Last Filed: 09/16/17 16:33> - Diagnosis Cellulitis of breast - Discharge Dispostion Condition at time of disposition: Fair
[2017-09-16] MEDS ORDERED: VANCOMYCIN 1,000 MG VIAL (RESTRICTED TO ID ONLY) ONE (15:51)
[2017-09-16 15:55] LABS: BASO % 1.1 % (0-2.0); EOS % 2.1 % (0-4.5); HEMATOCRIT 35.8 % (32.4-45.2); HEMOGLOBIN 12.1 GM/dl (10.7-15.3); MCH 32.2 pg (25.7-33.7); MCHC 33.9 g/dl (32.0-36.0); MEAN PLT VOLUME 7.3 fl (7.5-11.1); MONO % 5.7 % (3.8-10.2); NEUT % 67.1 % (42.8-82.8); PLATELET COUNT 422 K/MM3 (134-434); RBC 3.77 M/mm3 (3.60-5.2); RDW 13.4 % (11.6-15.6)
[2017-09-16 16:13] LABS: INR 1.18 (0.82-1.09); PROTHROMBIN TIME (PATIENT) 13.2 SEC (10.2-13.0)
[2017-09-16] MEDS ORDERED: SODIUM CHLORIDE 0.9% 500 ML INFUS.BAG IV ONE (16:16)
[2017-09-16 16:46] LABS: ALBUMIN 3.7 g/dl (3.5-5.0); ALK PHOS 139 U/L (32-92); ANION GAP 9 (8-16); BLOOD UREA NITROGEN 15 mg/dl (7-18); CALCIUM 8.9 mg/dl (8.4-10.2); CHLORIDE 103 mmol/L (98-107); CO2 25 mmol/L (22-28); GLUCOSE,RANDOM 101 mg/dl (74-106); POTASSIUM 4.2 mmol/L (3.5-5.1); SGOT/AST 29 U/L (10-42); SGPT/ALT 21 U/L (10-40); SODIUM 137 mmol/L (136-145); TOT PROT 7.2 g/dl (6.4-8.3)
[2017-09-16 17:00] LABS: BILIRUBIN,TOTAL 0.5 mg/dl (0.2-1.0)
[2017-09-16 17:06] LABS: CREATININE < 0.8 mg/dl (0.6-1.3)
[2017-09-16 17:23] LABS: URINE APPEARANCE Clear; URINE BILIRUBIN Negative (NEGATIVE); URINE BLOOD Negative (NEGATIVE); URINE GLUCOSE (UA) Negative (NEGATIVE); URINE KETONE Negative (NEGATIVE); URINE LEUK ESTERASE TRACE (NEGATIVE); URINE NITRITE Negative (NEGATIVE); URINE PROTEIN Negative (NEGATIVE); URINE UROBILINOGEN 0.2 (0.2-1.0)
[2017-09-16 17:24] LABS: URINE COLOR YELLOW
--- NOTE | 2017-09-16 17:30 | PN ---
Progress Note (short form) - Note Progress Note: ID Consult dictated Cellulitis L breast S/P bilateral mastectomy/ reconstruction Blood c/s Empiric vancomycin/ zosyn
[2017-09-16] MEDS ORDERED: PIPERACILLIN/TAZOBACTAM 3.375 GM VIAL IVPB ONE (18:12)
[2017-09-16 19:36] VITALS: BMI 24.8
[2017-09-16] MEDS: PIPERACILLIN/TAZOB 3.375 GM 50 ML IVPB SCH (19:45)
[2017-09-16 19:57] LABS: EPI CELLS FEW /HPF; URINE BACTERIA FEW /hpf (NEGATIVE); URINE RBC 0-2 /hpf (0-3)
[2017-09-16] MEDS ORDERED: VANCOMYCIN 1,000 MG in DEXTROSE 5%-WATER - 250 ML IVPB SCH (22:00)
[2017-09-16] MEDS: diphenhydrAMINE HCL 25 MG CAPSULE (FP) PO PRN (22:13)
--- NOTE | 2017-09-16 23:39 | HP ---
<Tatyana Luz - Last Filed: 09/17/17 02:32> CHIEF COMPLAINT: breast infection PCP: Harshad HISTORY OF PRESENT ILLNESS: This is a 52 year old female with a past medical history of breast cancer s/p mastectomy and subsequent breast reduction on 08/30/17 who presented to the ED from her plastic surgeon's office with infection of breast. Pt reports redness and swelling x 3 days. She was seen in the ED on 09/14 for chest pain, CTA negative for PE, started on cefodroxil and clindamycin. ER course was notable for: (1) WBC 6.0 (2) breast US done Recent Travel: pt denies PAST MEDICAL HISTORY: chronic back pain, herniated lumbar discs, BrCA PAST SURGICAL HISTORY: B/L mastectomy 2014 hysterectomy (fibroids) 2012 urethral cystectomy 2012 L breast cystectomy 1985 Social History: Smoking: pt denies Alcohol: pt denies Drugs: pt denies Family History: mother, alive, heart murmur, HTN, DM father age69, unk 1 brother and 1 daughter alive, no PMH Allergies cat dander Allergy (Intermediate, Verified 09/16/17 14:40) NASAL CONGESTION/SNEEZING kiwi Allergy (Intermediate, Verified 09/16/17 14:40) vancomycin Allergy (Mild, Verified 09/16/17 18:50) Itching redness and itching s/p Vnacomycin administered in ER..MD,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 No Known Drug Allergies Allergy (Verified 09/16/17 14:40) HOME MEDICATIONS: 3 Medication Instructions Recorded Oxycodone HCl/Acetaminophen 1 each PO TID PRN 09/30/15 [Oxycodone-Acetaminophen 10-325] Cefadroxil [Cefadroxil] 500 mg PO DAILY 09/14/17 REVIEW OF SYSTEMS CONSTITUTIONAL: Absent: fever, chills, diaphoresis, generalized weakness, malaise, loss of appetite, weight change HEENT: Absent: rhinorrhea, nasal congestion, throat pain, throat swelling, difficulty swallowing, mouth swelling, ear pain, eye pain, visual changes CARDIOVASCULAR: Absent: chest pain, syncope, palpitations, irregular heart rate, lightheadedness , peripheral edema RESPIRATORY: Absent: cough, shortness of breath, dyspnea with exertion, orthopnea, wheezing, stridor, hemoptysis GASTROINTESTINAL: Absent: abdominal pain, abdominal distension, nausea, vomiting, diarrhea, constipation, melena, hematochezia GENITOURINARY: Absent: dysuria, frequency, urgency, hesitancy, hematuria, flank pain, genital pain MUSCULOSKELETAL: Absent: myalgia, arthralgia, joint swelling, back pain, neck pain SKIN: left breast with warmth and erythema around incision site Absent: rash, itching, pallor HEMATOLOGIC/IMMUNOLOGIC: Absent: easy bleeding, easy bruising, lymphadenopathy, frequent infections ENDOCRINE: Absent: unexplained weight gain, unexplained weight loss, heat intolerance, cold intolerance NEUROLOGIC: Absent: headache, focal weakness or paresthesias, dizziness, unsteady gait, seizure, mental status changes, bladder or bowel incontinence PSYCHIATRIC: Absent: anxiety, depression, suicidal or homicidal ideation, hallucinations. PHYSICAL EXAMINATION Vital Signs - 24 hr 3 09/16/17 09/16/17 09/16/17 14:40 18:25 19:28 Temperature 98.1 F 97.8 F 97.7 F Pulse Rate 70 66 Pulse Rate [ 80 Apical] Respiratory 18 16 20 Rate Blood Pressure 139/93 122/75 Blood Pressure 123/80 [Arm] Blood Pressure 123/80 [Right Arm] O2 Sat by Pulse 99 99 Oximetry (%) 3 09/16/17 09/16/17 20:00 22:26 Temperature 98.4 F Pulse Rate 64 Pulse Rate [ Apical] Respiratory 16 18 Rate Blood Pressure 125/75 Blood Pressure [Arm] Blood Pressure [Right Arm] O2 Sat by Pulse 97 Oximetry (%) GENERAL: Awake, alert, and fully oriented, in no acute distress. HEAD: Normal with no signs of trauma. EYES: Pupils equal, round and reactive to light, extraocular movements intact, sclera anicteric, conjunctiva clear. No lid lag. EARS, NOSE, THROAT: Ears normal, nares patent, oropharynx clear without exudates. Moist mucous membranes. NECK: Normal range of motion, supple without lymphadenopathy, JVD, or masses. LUNGS: Breath sounds equal, clear to auscultation bilaterally. No wheezes, and no crackles. No accessory muscle use. HEART: Regular rate and rhythm, normal S1 and S2 without murmur, rub or gallop. ABDOMEN: Soft, nontender, not distended, normoactive bowel sounds, no guarding, no rebound, no masses. No hepatomegaly or splenomegaly. MUSCULOSKELETAL: Normal range of motion at all joints. No bony deformities or tenderness. No CVA tenderness. UPPER EXTREMITIES: 2+ pulses, warm, well-perfused. No cyanosis. No clubbing. No peripheral edema. LOWER EXTREMITIES: 2+ pulses, warm, well-perfused. No calf tenderness. No peripheral edema. NEUROLOGICAL: Cranial nerves II-XII intact. Normal speech. Normal gait. PSYCHIATRIC: Cooperative. Good eye contact. Appropriate mood and affect. SKIN: Warm, dry, normal turgor, no rashes or lesions noted, normal capillary refill. Left breast + warmth, erythema, tenderness, STS above incision site. has regressed from pen line slightly. Laboratory Results - last 24 hr 3 09/16/17 09/16/17 09/16/17 15:20 15:20 15:36 WBC 6.0 RBC 3.77 Hgb 12.1 D Hct 35.8 MCV 95.0 MCH 32.2 MCHC 33.9 RDW 13.4 Plt Count 422 MPV 7.3 L Neutrophils % 67.1 Lymphocytes % 24.0 Monocytes % 5.7 Eosinophils % 2.1 Basophils % 1.1 PT with INR 13.2 H INR 1.18 Sodium Potassium Chloride Carbon Dioxide Anion Gap BUN Creatinine Creat Clearance w eGFR Random Glucose Lactic Acid 1.4 Calcium Total Bilirubin AST ALT Alkaline Phosphatase Total Protein Albumin Urine Color Urine Appearance Urine pH Ur Specific [place] Urine Protein Urine Glucose (UA) Urine Ketones Urine Blood Urine Nitrite Urine Bilirubin Urine Urobilinogen Ur Leukocyte Esterase Urine RBC Urine WBC Ur Epithelial Cells Urine Bacteria Urine HCG, Qual Blood Type Antibody Screen 3 09/16/17 09/16/17 09/16/17 15:36 15:36 16:00 WBC RBC Hgb Hct MCV MCH MCHC RDW Plt Count MPV Neutrophils % Lymphocytes % Monocytes % Eosinophils % Basophils % PT with INR INR Sodium 137 Potassium 4.2 Chloride 103 Carbon Dioxide 25 Anion Gap 9 BUN 15 Creatinine < 0.8 Creat Clearance w eGFR > 60 Random Glucose 101 Lactic Acid Calcium 8.9 Total Bilirubin 0.5 D AST 29 ALT 21 D Alkaline Phosphatase 139 H D Total Protein 7.2 Albumin 3.7 Urine Color Yellow Urine Appearance Clear Urine pH 6.0 Ur Specific [place] 1.010 Urine Protein Negative Urine Glucose (UA) Negative Urine Ketones Negative Urine Blood Negative Urine Nitrite Negative Urine Bilirubin Negative Urine Urobilinogen 0.2 Ur Leukocyte Esterase Trace H Urine RBC 0-2 Urine WBC 2-5 Ur Epithelial Cells Few Urine Bacteria Few Urine HCG, Qual Cancelled Blood Type A NEGATIVE Antibody Screen Negative ECG NSR vent rate 62, QTC [address]/T changes Radiology Reports Breast/axilla US report pending CXR, final read pending, no acute findings ASSESSMENT/PLAN: 52yF with PMH BrCA, Chronic back pain presented to the ED with redness, swelling to breast reconstruction site. Breast cellulitis - given vancomycin in ED, back of head, neck and upper back became red, and pt reports it felt like it was burning. Likely steve syndrome due to rate of administration, not likely allergic reaction, would continue tomorrow but will defer to ID - cont zosyn - ID consult - Plastic surgery consult Chronic low back pain - cont home percocet, takes 10/325, not available here, will give oxy 10 and acetaminophen 325mg DVT PPX - heparin 5000u BID FEN - Pt tolerating po fluids, hold IVF - BMP in am - regular diet as tolerated. Dispo: pt currently requires inpatient mangement of her emergent condition. Hospitalist Screening - Colonoscopy Questionnaire Colonoscopy Questionnaire: Colonoscopy Questionnaire - Patient: 50 - 75 years old and never had a screening colonoscopy: No History of colon or rectal polyps, or CA: No History of IBD, Crohn's disease or UC: No History of abdominal radiation therapy as a child: No - Relative: 1 with colon or rectal CA, or polyps at age 60 or younger: No Colon or rectal CA diagnosed at age 45 or younger: No Multiple relatives with colon or rectal CA: No - Outcome: Screening Result: Negative Screen <Krista Farley - Last Filed: 09/17/17 12:14> CHIEF COMPLAINT: PCP: HISTORY OF PRESENT ILLNESS: ER course was notable for: (1) (2) (3) Recent Travel: PAST MEDICAL HISTORY: PAST SURGICAL HISTORY: Social History: Smoking: Alcohol: Drugs: Family History: Allergies cat dander Allergy (Intermediate, Verified 09/16/17 14:40) NASAL CONGESTION/SNEEZING kiwi Allergy (Intermediate, Verified 09/16/17 14:40) vancomycin Allergy (Mild, Verified 09/16/17 18:50) Itching redness and itching s/p Vnacomycin administered in ER..MD,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 No Known Drug Allergies Allergy (Verified 09/16/17 14:40) HOME MEDICATIONS: Home Medications Medication Instructions Recorded Oxycodone HCl/Acetaminophen 1 each PO TID PRN 09/30/15 [Oxycodone-Acetaminophen 10-325] Cefadroxil [Cefadroxil] 500 mg PO DAILY 09/14/17 REVIEW OF SYSTEMS CONSTITUTIONAL: Absent: fever, chills, diaphoresis, generalized weakness, malaise, loss of appetite, weight change HEENT: Absent: rhinorrhea, nasal congestion, throat pain, throat swelling, difficulty swallowing, mouth swelling, ear pain, eye pain, visual changes CARDIOVASCULAR: Absent: chest pain, syncope, palpitations, irregular heart rate, lightheadedness , peripheral edema RESPIRATORY: Absent: cough, shortness of breath, dyspnea with exertion, orthopnea, wheezing, stridor, hemoptysis GASTROINTESTINAL: Absent: abdominal pain, abdominal distension, nausea, vomiting, diarrhea, constipation, melena, hematochezia GENITOURINARY: Absent: dysuria, frequency, urgency, hesitancy, hematuria, flank pain, genital pain MUSCULOSKELETAL: Absent: myalgia, arthralgia, joint swelling, back pain, neck pain SKIN: Absent: rash, itching, pallor HEMATOLOGIC/IMMUNOLOGIC: Absent: easy bleeding, easy bruising, lymphadenopathy, frequent infections ENDOCRINE: Absent: unexplained weight gain, unexplained weight loss, heat intolerance, cold intolerance NEUROLOGIC: Absent: headache, focal weakness or paresthesias, dizziness, unsteady gait, seizure, mental status changes, bladder or bowel incontinence PSYCHIATRIC: Absent: anxiety, depression, suicidal or homicidal ideation, hallucinations. PHYSICAL EXAMINATION Vital Signs - 24 hr 09/16/17 09/16/17 09/16/17 14:40 18:25 19:28 Temperature 98.1 F 97.8 F 97.7 F Pulse Rate 70 66 Pulse Rate [ 80 Apical] Respiratory 20 Rate Blood Pressure 139/93 122/75 Blood Pressure 123/80 [Arm] Blood Pressure 123/80 [Right Arm] O2 Sat by Pulse 99 99 Oximetry (%) 09/16/17 09/16/17 09/17/17 20:00 22:26 06:34 Temperature 98.4 F 98.3 F Pulse Rate 64 62 Pulse Rate [ Apical] Respiratory 16 18 18 Rate Blood Pressure 125/75 109/63 Blood Pressure [Arm] Blood Pressure [Right Arm] O2 Sat by Pulse 97 97 Oximetry (%) 09/17/17 09/17/17 09:00 10:00 Temperature 98.3 F Pulse Rate 70 Pulse Rate [ Apical] Respiratory 18 18 Rate Blood Pressure 110/78 Blood Pressure [Arm] Blood Pressure [Right Arm] O2 Sat by Pulse 97 Oximetry (%) GENERAL: Awake, alert, and fully oriented, in no acute distress. HEAD: Normal with no signs of trauma. EYES: Pupils equal, round and reactive to light, extraocular movements intact, sclera anicteric, conjunctiva clear. No lid lag. EARS, NOSE, THROAT: Ears normal, nares patent, oropharynx clear without exudates. Moist mucous membranes. NECK: Normal range of motion, supple without lymphadenopathy, JVD, or masses. LUNGS: Breath sounds equal, clear to auscultation bilaterally. No wheezes, and no crackles. No accessory muscle use. HEART: Regular rate and rhythm, normal S1 and S2 without murmur, rub or gallop. ABDOMEN: Soft, nontender, not distended, normoactive bowel sounds, no guarding, no rebound, no masses. No hepatomegaly or splenomegaly. MUSCULOSKELETAL: Normal range of motion at all joints. No bony deformities or tenderness. No CVA tenderness. UPPER EXTREMITIES: 2+ pulses, warm, well-perfused. No cyanosis. No clubbing. No peripheral edema. LOWER EXTREMITIES: 2+ pulses, warm, well-perfused. No calf tenderness. No peripheral edema. NEUROLOGICAL: Cranial nerves II-XII intact. Normal speech. Normal gait. PSYCHIATRIC: Cooperative. Good eye contact. Appropriate mood and affect. SKIN: Warm, dry, normal turgor, no rashes or lesions noted, normal capillary refill. Laboratory Results - last 24 hr 09/16/17 09/16/17 09/16/17 15:20 15:20 15:36 WBC 6.0 RBC 3.77 Hgb 12.1 D Hct 35.8 MCV 95.0 MCH 32.2 MCHC 33.9 RDW 13.4 Plt Count 422 MPV 7.3 L Neutrophils % 67.1 Lymphocytes % 24.0 Monocytes % 5.7 Eosinophils % 2.1 Basophils % 1.1 PT with INR 13.2 H INR 1.18 Sodium Potassium Chloride Carbon Dioxide Anion Gap BUN Creatinine Creat Clearance w eGFR Random Glucose Lactic Acid 1.4 Calcium Phosphorus Magnesium Total Bilirubin AST ALT Alkaline Phosphatase Total Protein Albumin Urine Color Urine Appearance Urine pH Ur Specific [place] Urine Protein Urine Glucose (UA) Urine Ketones Urine Blood Urine Nitrite Urine Bilirubin Urine Urobilinogen Ur Leukocyte Esterase Urine RBC Urine WBC Ur Epithelial Cells Urine Bacteria Urine HCG, Qual Blood Type Antibody Screen 09/16/17 09/16/17 09/16/17 15:36 15:36 16:00 WBC RBC Hgb Hct MCV MCH MCHC RDW Plt Count MPV Neutrophils % Lymphocytes % Monocytes % Eosinophils % Basophils % PT with INR INR Sodium 137 Potassium 4.2 Chloride 103 Carbon Dioxide 25 Anion Gap 9 BUN 15 Creatinine < 0.8 Creat Clearance w eGFR > 60 Random Glucose 101 Lactic Acid Calcium 8.9 Phosphorus Magnesium Total Bilirubin 0.5 D AST 29 ALT 21 D Alkaline Phosphatase 139 H D Total Protein 7.2 Albumin 3.7 Urine Color Yellow Urine Appearance Clear Urine pH 6.0 Ur Specific [place] 1.010 Urine Protein Negative Urine Glucose (UA) Negative Urine Ketones Negative Urine Blood Negative Urine Nitrite Negative Urine Bilirubin Negative Urine Urobilinogen 0.2 Ur Leukocyte Esterase Trace H Urine RBC 0-2 Urine WBC 2-5 Ur Epithelial Cells Few Urine Bacteria Few Urine HCG, Qual Cancelled Blood Type A NEGATIVE Antibody Screen Negative 09/17/17 09/17/17 08:10 08:10 WBC 4.7 RBC 3.46 L Hgb 11.6 Hct 32.8 MCV 94.9 MCH 33.5 MCHC 35.3 RDW 13.0 Plt Count 348 MPV 7.1 L Neutrophils % 51.2 Lymphocytes % 37.1 Monocytes % 7.9 Eosinophils % 3.3 Basophils % 0.5 PT with INR INR Sodium 140 Potassium 4.0 Chloride 107 Carbon Dioxide 26 Anion Gap 7 L BUN 12 Creatinine < 0.8 Creat Clearance w eGFR Random Glucose 94 Lactic Acid Calcium 8.5 Phosphorus 3.7 Magnesium 1.9 Total Bilirubin AST ALT Alkaline Phosphatase Total Protein Albumin Urine Color Urine Appearance Urine pH Ur Specific [place] Urine Protein Urine Glucose (UA) Urine Ketones Urine Blood Urine Nitrite Urine Bilirubin Urine Urobilinogen Ur Leukocyte Esterase Urine RBC Urine WBC Ur Epithelial Cells Urine Bacteria Urine HCG, Qual Blood Type Antibody Screen ASSESSMENT/PLAN: Hospitalist Screening - Colonoscopy Questionnaire Colonoscopy Questionnaire: Colonoscopy Questionnaire
[2017-09-17] MEDS ORDERED: oxyCODONE HCL 5 MG TABLET PO ONE (00:09)
[2017-09-17] MEDS: PIPERACILLIN/TAZOB 3.375 GM 50 ML IVPB SCH (01:38)
[2017-09-17] MEDS ORDERED: oxyCODONE HCL 5 MG TABLET PO PRN (02:45)
--- NOTE | 2017-09-17 07:54 | PN ---
Physical Exam: SUBJECTIVE: Patient seen and examined, reports feeling well, denies any tactile fevers. OBJECTIVE: Patient is a 52 year old female with a past medical history of breast cancer s/p mastectomy and subsequent breast reduction on 08/30/17. Patient was admitted from the emergency department for right breast cellulitis. Vital Signs Period Temp Pulse Resp BP Sys/Ingram Pulse Ox Last 24 Hr 97.7 F-98.4 F 62-80 16-20 109-139/63-93 97-99 GENERAL: The patient is awake, alert, and fully oriented, in no acute distress. HEAD: Normal with no signs of trauma. EYES: PERRL, extraocular movements intact, sclera anicteric, conjunctiva clear. No ptosis. ENT: Ears normal, nares patent, oropharynx clear without exudates, moist mucous membranes. NECK: Trachea midline, full range of motion, supple. LUNGS: Breath sounds equal, clear to auscultation bilaterally, no wheezes, no crackles, no accessory muscle use. HEART: Regular rate and rhythm, S1, S2 without murmur, rub or gallop. ABDOMEN: Soft, nontender, nondistended, normoactive bowel sounds, no guarding, no rebound, no hepatosplenomegaly, no masses. EXTREMITIES: 2+ pulses, warm, well-perfused, no edema. NEUROLOGICAL: Cranial nerves II through XII grossly intact. Normal speech, gait not observed. PSYCH: Normal mood, normal affect. SKIN: sutures under right breast well approximated intact, no drainage noted, slight induration noted, Warm, dry, normal turgor, no rashes or lesions noted, Laboratory Results - last 24 hr 09/16/17 09/16/17 09/16/17 15:20 15:20 15:36 WBC 6.0 RBC 3.77 Hgb 12.1 D Hct 35.8 MCV 95.0 MCH 32.2 MCHC 33.9 RDW 13.4 Plt Count 422 MPV 7.3 L Neutrophils % 67.1 Lymphocytes % 24.0 Monocytes % 5.7 Eosinophils % 2.1 Basophils % 1.1 PT with INR 13.2 H INR 1.18 Sodium Potassium Chloride Carbon Dioxide Anion Gap BUN Creatinine Creat Clearance w eGFR Random Glucose Lactic Acid 1.4 Calcium Total Bilirubin AST ALT Alkaline Phosphatase Total Protein Albumin Urine Color Urine Appearance Urine pH Ur Specific [place] Urine Protein Urine Glucose (UA) Urine Ketones Urine Blood Urine Nitrite Urine Bilirubin Urine Urobilinogen Ur Leukocyte Esterase Urine RBC Urine WBC Ur Epithelial Cells Urine Bacteria Urine HCG, Qual Blood Type Antibody Screen 09/16/17 09/16/17 09/16/17 15:36 15:36 16:00 WBC RBC Hgb Hct MCV MCH MCHC RDW Plt Count MPV Neutrophils % Lymphocytes % Monocytes % Eosinophils % Basophils % PT with INR INR Sodium 137 Potassium 4.2 Chloride 103 Carbon Dioxide 25 Anion Gap 9 BUN 15 Creatinine < 0.8 Creat Clearance w eGFR > 60 Random Glucose 101 Lactic Acid Calcium 8.9 Total Bilirubin 0.5 D AST 29 ALT 21 D Alkaline Phosphatase 139 H D Total Protein 7.2 Albumin 3.7 Urine Color Yellow Urine Appearance Clear Urine pH 6.0 Ur Specific [place] 1.010 Urine Protein Negative Urine Glucose (UA) Negative Urine Ketones Negative Urine Blood Negative Urine Nitrite Negative Urine Bilirubin Negative Urine Urobilinogen 0.2 Ur Leukocyte Esterase Trace H Urine RBC 0-2 Urine WBC 2-5 Ur Epithelial Cells Few Urine Bacteria Few Urine HCG, Qual Cancelled Blood Type A NEGATIVE Antibody Screen Negative Active Medications Generic Name Dose Route Start Last Admin Trade Name Freq PRN Reason Stop Dose Admin Acetaminophen 325 mg 09/17/17 02:45 Tylenol - PO Q6H PRN PAIN LEVEL 6-10 Diphenhydramine HCl 25 mg 09/16/17 20:11 09/16/17 22:13 Benadryl - PO 25 mg Q6H PRN Administration FOR ITCHING Heparin Sodium (Porcine) 5,000 unit 09/17/17 10:00 Heparin - SQ BID BETTY Piperacillin/Tazobactam/Dextrose 50 mls @ 100 mls/hr 09/16/17 18:00 09/17/17 01:38 Zosyn 3.375gm Ivpb (Premix) IVPB 100 mls/hr Q8H-IV BETTY Administration Protocol Oxycodone HCl 10 mg 09/17/17 02:45 Roxicodone - PO Q6H PRN PAIN LEVEL 6-10 ECG NSR vent rate 62, QTC [address]/T changes Radiology Reports Breast/axilla US post surgical dressing involving the left breast CXR, no acute pathology ASSESSMENT/PLAN: 1) ID Breast cellulitis - no leukocytosis, patient is afebrile - given vancomycin in ED, back of head, neck and upper back became red, and pt reports it felt like it was burning. Likely steve syndrome due to rate of administration, would continue vancomycin at slow rate, continue zosyn, Dr Lora consulted and following - plastic surgeon, Dr Patricia consulted and following, case discussed with Dr Patricia at bedside 2) ms Chronic low back pain - oxycodone 10mg since percocet 10/325mg is not available DVT PPX - heparin 5000u BID FEN - Pt tolerating po fluids, - regular diet as tolerated. Dispo: pt currently requires inpatient mangement of her emergent condition, discharge tommorow, in the AM after vanc and zosyn, patient to be discharged on bactrim ds, prescription called into pharmacy by Dr Patricia, first dose of bactrim to be given tomorrow. patient to follow up with Dr Patricia on Wednesday.
[2017-09-17 08:46] LABS: BASO % 0.5 % (0-2.0); EOS % 3.3 % (0-4.5); HEMATOCRIT 32.8 % (32.4-45.2); HEMOGLOBIN 11.6 GM/dl (10.7-15.3); LYMPH % 37.1 % (8-40); MCH 33.5 pg (25.7-33.7); MCHC 35.3 g/dl (32.0-36.0); MEAN CELL VOLUME 94.9 fl (80-96); MEAN PLT VOLUME 7.1 fl (7.5-11.1); MONO % 7.9 % (3.8-10.2); NEUT % 51.2 % (42.8-82.8); PLATELET COUNT 348 K/MM3 (134-434); RBC 3.46 M/mm3 (3.60-5.2); WHITE BLOOD COUNT 4.7 K/mm3 (4.0-10.8)
[2017-09-17 09:06] LABS: ANION GAP 7 (8-16); BLOOD UREA NITROGEN 12 mg/dl (7-18); CALCIUM 8.5 mg/dl (8.4-10.2); CHLORIDE 107 mmol/L (98-107); CO2 26 mmol/L (22-28); GLUCOSE,RANDOM 94 mg/dl (74-106); MAGNESIUM 1.9 mg/dL (1.8-2.4); PHOSPHOROUS 3.7 mg/dl (2.5-4.6); SODIUM 140 mmol/L (136-145)
[2017-09-17 09:23] LABS: CREATININE < 0.8 mg/dl (0.6-1.3)
[2017-09-17] MEDS ORDERED: PT OWN MED DRAWER 7, Y5N ONE (09:51)
--- NOTE | 2017-09-17 09:59 | PN ---
Progress Note, Physician History of Present Illness: Developed pruritis during vancomycin infusion No c/o L breast pain No c/o fever/ chills - Current Medication List Current Medications: Active Medications Acetaminophen (Tylenol -) 325 mg PO Q6H PRN PRN Reason: PAIN LEVEL 6-10 Diphenhydramine HCl (Benadryl -) 25 mg PO Q6H PRN PRN Reason: FOR ITCHING Last Admin: 09/16/17 22:13 Dose: 25 mg Heparin Sodium (Porcine) (Heparin -) 5,000 unit SQ BID BETTY Piperacillin/Tazobactam/Dextrose (Zosyn 3.375gm Ivpb (Premix)) 50 mls @ 100 mls /hr IVPB Q8H-IV BETTY PRN Reason: Protocol Last Admin: 09/17/17 01:38 Dose: 100 mls/hr Oxycodone HCl (Roxicodone -) 10 mg PO Q6H PRN PRN Reason: PAIN LEVEL 6-10 - Objective Vital Signs: Vital Signs Temperature 98.3 F 09/17/17 06:34 Pulse Rate 62 09/17/17 06:34 Respiratory Rate 18 09/17/17 06:34 Blood Pressure 109/63 09/17/17 06:34 O2 Sat by Pulse Oximetry (%) 97 09/17/17 06:34 Constitutional: Yes: No Distress Eyes: Yes: Conjunctiva Clear Neck: Yes: Supple Cardiovascular: Yes: Regular Rate and Rhythm Respiratory: Yes: CTA Bilaterally Gastrointestinal: Yes: Normal Bowel Sounds, Soft. No: Tenderness Breast(s): Yes: Other (L breast eythema resolved) Labs: CBC, BMP 09/17/17 08:10 09/17/17 08:10 INR, PTT INR 1.18 (0.82-1.09) 09/16/17 15:36 Assessment/Plan Cellulitis L breast resolved Probable "red man syndrome" S/P bilateral mastectomy/ reconstruction Doing well May substitute Bactrim DS po bid x 7d Discussed with surgeon Outpatient follow up
[2017-09-17] MEDS: HEPARIN NA (PORCINE) 5,000 UNITS/ML 1ML VIAL SQ SCH ×2 (10:22→21:57)
[2017-09-17] MEDS: PIPERACILLIN/TAZOB 3.375 GM 3.375 GM/50 ML BAG IVPB SCH ×2 (10:22→17:28)
--- NOTE | 2017-09-17 11:55 | CONS ---
DATE OF CONSULTATION: DATE OF DICTATION: 09/17/2017 The patient is a 52-year-old female evaluated for cellulitis of the left breast. The patient was diagnosed with stage I ductal carcinoma in situ, left breast, in 2014. She underwent a bilateral nipple-sparing mastectomy on July 02, 2015, with tissue passenger interline clerk placement. Patient had subsequently undergone placement of bilateral implants. Because of aesthetic reasons, she was taken back to the operating room on August 30, 2017, where a revision was performed of the left breast implant. She did well until Wednesday, September 13, 2017, where she presented to the emergency room with complaints of chest pain. Concern was raised about the possibility of acute pulmonary embolism. A CT angiogram was performed and was negative for pulmonary embolism. She was prescribed oral clindamycin which she took for 7 days for erythema at the left breast site. She continued to complain of chills, localized left breast pain, swelling, and redness. She returned to the emergency room where she was admitted on September 16, 2017. She was found to have cellulitis of the left breast involving the left lower and inner quadrants. She experienced some chills and some nausea, but no fever. She has been afebrile in the hospital. She denies prior history of serious soft tissue infection requiring hospitalization or history of MRSA infection. PAST MEDICAL HISTORY: As above. ALLERGIES: No known diagnosed allergies. MEDICATIONS: Include oxycodone. SOCIAL HISTORY: She resides at home. She is a nonsmoker, occasional EtOH. REVIEW OF SYSTEMS: Neurologic: No loss of consciousness, seizure activity, focal weakness. Cardiac: Negative chest pain or palpitations. Respiratory: Negative cough or sputum production. Gastrointestinal: Negative vomiting or diarrhea. Genitourinary: Negative for urinary tract infection. LABORATORY DATA: White count 6.0, hematocrit 35.8, platelet count 422. BUN 15, creatinine 0.8. Cultures are pending. PHYSICAL EXAMINATION: General: She is awake and alert. She is not acutely toxic appearing. Vital Signs: Temperature 98.1, blood pressure 139/93, pulse 70 and regular, respirations 18 per minute. HEENT: Sclerae are anicteric. Cardiovascular: Heart sounds S1, S2. Lungs: Clear. Breasts: Examination of the right breast there are healed surgical scars noted. No evidence of infection. Examination of the left breast, there is erythema and warmth involving the left outer lower quadrant as well as a small amount of erythema involving the lower inner quadrant. It is warm to touch. No crepitus of fluctuance. No wound drainage. Abdomen: Soft and nontender. Extremities: Negative for edema. IMPRESSION: 1. Cellulitis of the left breast. 2. Status post bilateral mastectomy and reconstruction. PLAN: Obtain blood cultures, empiric antibiotic coverage with vancomycin and Zosyn pending culture results. We will follow. Thank you for the kind referral. RAMA ANAYA M.D. [id number]
[2017-09-17] MEDS: VANCOMYCIN 1 GRAM (PRE-DOCKED) 1,000 MG/250 ML BAG IVPB SCH ×2 (12:16→23:41)
[2017-09-17] MEDS: LACTOBACILLUS ACIDOPHILUS 1 EACH TAB (FP) PO SCH (12:16)
--- NOTE | 2017-09-17 15:09 | EKG ---
Test Reason : Blood Pressure : / mmHG Vent. Rate : 062 BPM Atrial Rate : 062 BPM P-R Int : 142 ms QRS Dur : 070 ms QT Int : 422 ms P-R-T Axes : 039 -04 010 degrees QTc Int : 428 ms NORMAL SINUS RHYTHM LOW VOLTAGE QRS SEPTAL INFARCT , AGE UNDETERMINED ABNORMAL ECG Confirmed by RAMA SOSA MD ([id number]) on 09/17/2017 3:09:11 PM Referred By: DR RAY Confirmed By:RAMA SOSA MD
[2017-09-17] MEDS: ACETAMINOPHEN 325 MG TABLET (FP) PO PRN (20:28)
[2017-09-17] MEDS: diphenhydrAMINE HCL 25 MG CAPSULE (FP) PO PRN (21:57)
--- NOTE | 2017-09-17 22:19 | PN ---
Progress Note (short form) - Note Progress Note: Patient admitted for left breast cellulitis after revision left breast reconstruction 08/30/17 with implant, fat grafting and Alloderm. Patient was on Clindamycin PO prior to admission with development of left lateral breast erythema. I saw and evaluated the patient at approximately 12pm today 09/17/17. Currently patient feels well without pain and believes her left breast redness is improving. She developed a rash after Vancomycin given yesterday in ER however ID believed this may be related to infusion speed and patient has tolerated subsequent Vancomycin. On exam: Patient afebrile, temps 98.3-98.7 Pulse 62-78 Vital signs stable Left breast erythema appears to be improving. No fluid collections. Wound intact and healing. Right breast stable. Labs/Studies: Blood cultures 09/16/17 x 2 negative to date WBC 09/16/17 was 6.0 with 67% neutrophils WBC 09/17/17 was 4.7 with 51% neutrophils Left breast US 09/16/[address] earlier in the week both reveal no left breast fluid collections. Plan: Left breast cellulitis improving with Vancomycin and Zosyn. Infectious Disease following, plan reviewed with Dr. Lora. Admitted to Hospitalist service, plan discussed with Krista Farley MEDICAL STAFF MANAGER If erythema continues to improve patient may be discharged on Bactrim and Cefadroxil (antibiotics to be determined by ID team). Possibility of need for further surgery if erythema/infection progresses was discussed with patient, however at this time she is afebrile, she feels well, has a normal WBC with diff, there is no fluid collection on imaging, and her erythema is improving with antibiotics. All of her questions were answered and she will follow up with me in the office 09/20/17 at 2pm. She was advised to call me at any time.
[2017-09-18] MEDS: PIPERACILLIN/TAZOB 3.375 GM 3.375 GM/50 ML BAG IVPB SCH ×2 (02:59→10:28)
[2017-09-18 10:24] VITALS: BP 101/70; PULSE 68; TEMP 98.8
[2017-09-18] MEDS: LACTOBACILLUS ACIDOPHILUS 1 EACH TAB (FP) PO SCH (10:28)
[2017-09-18] MEDS: HEPARIN NA (PORCINE) 5,000 UNITS/ML 1ML VIAL SQ SCH (10:28)
[2017-09-18] MEDS ORDERED: SULFAMETHOXAZOLE/TRIMETHOPRIM 800MG/160MG D.S. TABLET PO SCH (10:45)
[2017-09-18] MEDS: ACETAMINOPHEN 325 MG TABLET (FP) PO PRN (10:59)
--- NOTE | 2017-09-18 12:18 | DS ---
Physical Exam: SUBJECTIVE: Patient seen and examined OBJECTIVE: Vital Signs Period Temp Pulse Resp BP Sys/Ingram Pulse Ox Last 24 Hr 97.5 F-98.8 F 60-78 16-19 101-104/61-70 99-100 PHYSICAL EXAM GENERAL: The patient is awake, alert, and fully oriented, in no acute distress. HEAD: Normal with no signs of trauma. EYES: PERRL, extraocular movements intact, sclera anicteric, conjunctiva clear. ENT: Ears normal, nares patent, oropharynx clear without exudates, moist mucous membranes. NECK: Trachea midline, full range of motion, supple. LUNGS: Breath sounds equal, clear to auscultation bilaterally, no wheezes, no crackles, no accessory muscle use. HEART: Regular rate and rhythm, S1, S2 without murmur, rub or gallop. ABDOMEN: Soft, nontender, nondistended, normoactive bowel sounds, no guarding, no rebound, no hepatosplenomegaly, no masses. EXTREMITIES: 2+ pulses, warm, well-perfused, no edema. NEUROLOGICAL: Cranial nerves II through XII grossly intact. Normal speech, gait not observed. PSYCH: Normal mood, normal affect. SKIN: Warm, dry, normal turgor, no rashes or lesions noted. LABS HOSPITAL COURSE: Date of Admission:09/16/17 Date of Discharge: 09/18/17 Minutes to complete discharge: 35 Discharge Summary Reason For Visit: CELLULITIS LEFT BREAST Current Active Problems Cellulitis (Acute) Cellulitis of breast (Acute) Condition: Improved - Instructions Diet, Activity, Other Instructions: A prescription was sent to your pharmacy by Dr. Patricia for Bactrim. Take this medication as directed and be sure to finish all the medication. A prescription has also been sent for Benadryl. You are to follow up with Dr. Patricia for your post-op care and suture removal. Return to the emergency department for any new or worsening symptoms. Referrals: Bhavana Patricia MD [Staff Physician] - Disposition: HOME - Home Medications Comprehensive Discharge Medication List: Ambulatory Orders Diphenhydramine HCl [Benadryl Capsule -] 25 mg PO Q6H PRN #30 capsule 09/18/17 Sulfamethoxazole/Trimethoprim [Bactrim DS -] 1 each PO BID tablet 09/18/17 This patient is new to me today: Yes Date on this admission: 09/18/17 Emergency Visit: Yes ED Registration Date: 09/16/17 Care time: The patient presented to the Emergency Department on the above date and was hospitalized for further evaluation of their emergent condition. Critical Care patient: No - Discharge Referral Referred to [facility] No
[2017-09-18] MEDS: VANCOMYCIN 1 GRAM (PRE-DOCKED) 1,000 MG/250 ML BAG IVPB SCH (12:45)
== END 2017-09-18 14:30 | disposition home or self-care (01) | DRG 950 ==
LOC: FER 14:39 → FM/S 17:55
PROVIDERS: ADMIT Internal Medicine; ATTEND Nurse Practitioner Acute Care
DX: T81.4XXD Infection following a procedure, subsequent encounter (principal); N61.0 Mastitis without abscess; L53.9 Erythematous condition, unspecified; M54.5 Low back pain; Y83.8 Other surgical procedures as the cause of abnormal reaction of the patient, or of later complication, without mention of misadventure at the time of the procedure; M51.36 Other intervertebral disc degeneration, lumbar region; Z90.710 Acquired absence of both cervix and uterus; Z85.3 Personal history of malignant neoplasm of breast; T36.8X5A Adverse effect of other systemic antibiotics, initial encounter
CPT/HCPCS: 36415; 71045-TC-FY; 76641-TC-LT; 80048; 80053; 81003; 81015; 83605; 83735; 84100; 85025; 85610; 86850; 86900; 86901; 87040; 93005; 99282-25; J1644; J7030

== ENCOUNTER 2017-12-14 12:42 | Emergency (ER) | payer OTHER ==
--- NOTE | 2017-12-14 12:43 | PDOC ---
History of Present Illness - General Chief Complaint: Urinary Problem Stated Complaint: URINARY SX Time Seen by Provider: 12/14/17 12:43 History Source: Patient Exam Limitations: No Limitations - History of Present Illness Initial Comments: 52 yo F history prior UTIs presents with dysuria, frequency, urgency for past 2 days. Denies N/V/D, f/c, flank pain. She has had similar symptoms with prior UTIs. Past History - Past Medical History Allergies/Adverse Reactions: Allergies Allergy/AdvReac Type Severity Reaction Status Date / Time cat dander Allergy Intermediate NASAL Verified 12/14/17 12:50 CONGESTION/SNEEZING kiwi Allergy Intermediate Verified 12/14/17 12:50 No Known Drug Allergies Allergy Verified 09/16/17 14:40 Home Medications: Ambulatory Orders Cephalexin Monohydrate [Keflex -] 500 mg PO BID #6 capsule 12/14/17 Oxycodone HCl/Acetaminophen [Percocet 5-325 mg Tablet] 1 - 2 tab PO Q6H PRN 06/21 Anemia: No Asthma: No Cancer: Yes (LEFT BREAST CA 2015,SX--NO CHEMO/RT) Cardiac Disorders: No CVA: No COPD: No CHF: No Dementia: No Diabetes: No GI Disorders: No Disorders: No HTN: No Hypercholesterolemia: No Liver Disease: No Seizures: No Thyroid Disease: No - Surgical History Abdominal Surgery: Yes (SEE BELOW) Appendectomy: No Cardiac Surgery: No Cholecystectomy: No Lung Surgery: No Neurologic Surgery: No Orthopedic Surgery: No - Suicide/Smoking/Psychosocial Hx Smoking History: Never smoked Have you smoked in the past 12 months: No Hx Alcohol Use: Yes (VERY RARE) Drug/Substance Use Hx: Yes Substance Use Type: Alcohol, Prescribed Hx Substance Use Treatment: No Review of Systems - Review of Systems Able to Perform ROS?: Yes Comments:: GENERAL/CONSTITUTIONAL: No fever or chills. No weakness. HEAD, EYES, EARS, NOSE AND THROAT: No change in vision. No ear pain or discharge. No sore throat. CARDIOVASCULAR: No chest pain or shortness of breath. RESPIRATORY: No cough, wheezing, or hemoptysis. GASTROINTESTINAL: No nausea, vomiting, diarrhea or constipation. GENITOURINARY: +Dysuria, frequency, and urgency. MUSCULOSKELETAL: No joint or muscle swelling or pain. No neck or back pain. SKIN: No rash NEUROLOGIC: No headache, vertigo, loss of consciousness, or change in strength/ sensation. ENDOCRINE: No increased thirst. No abnormal weight change. HEMATOLOGIC/LYMPHATIC: No anemia, easy bleeding, or history of blood clots. ALLERGIC/IMMUNOLOGIC: No hives or skin allergy. *Physical Exam - Physical Exam Comments: GENERAL: Awake, alert, and fully oriented, in no acute distress HEAD: No signs of trauma EYES: PERRLA, EOMI, sclera anicteric, conjunctiva clear ENT: Auricles normal inspection, hearing grossly normal, nares patent, oropharynx clear without exudates. Moist mucosa NECK: Normal ROM, supple, no lymphadenopathy, JVD, or masses LUNGS: Breath sounds equal, clear to auscultation bilaterally. No wheezes, and no crackles HEART: Regular rate and rhythm, normal S1 and S2, no murmurs, rubs or gallops ABDOMEN: Soft, +suprapubic trenderness, normoactive bowel sounds. No guarding, no rebound. No masses. No CVAT. EXTREMITIES: Normal range of motion, no edema. No clubbing or cyanosis. No cords, erythema, or tenderness NEUROLOGICAL: Cranial nerves II through XII grossly intact. Normal speech, normal gait SKIN: Warm, Dry, normal turgor, no rashes or lesions noted. Medical Decision Making - Medical Decision Making 12/14/17 14:52 UA shows a few WBCs, but no nitrite. +Trace LE. She has clinical symptoms of UTI and has prior history of multiple UTIs, will treat empirically. Stable for DC home. *DC/Admit/Observation/Transfer Diagnosis at time of Disposition: UTI (urinary tract infection) Qualifiers: Urinary tract infection type: acute cystitis Hematuria presence: without hematuria Qualified Code(s): N30.00 - Acute cystitis without hematuria - Discharge Dispostion Disposition: HOME Condition at time of disposition: Stable Decision to Admit order: No - Prescriptions Prescriptions: Cephalexin Monohydrate [Keflex -] 500 mg PO BID #6 capsule - Referrals - Patient Instructions Printed Discharge Instructions: DI for Urinary Tract Infection (UTI) - Post Discharge Activity
[2017-12-14 12:56] VITALS: BP 120/86; PULSE 69; TEMP 98.5; BMI 25.4
[2017-12-14 14:06] LABS: URINE APPEARANCE Clear; URINE BILIRUBIN Negative (NEGATIVE); URINE BLOOD Negative (NEGATIVE); URINE GLUCOSE (UA) Negative (NEGATIVE); URINE KETONE Negative (NEGATIVE); URINE NITRITE Negative (NEGATIVE); URINE PROTEIN Negative (NEGATIVE); URINE UROBILINOGEN 0.2 (0.2-1.0)
[2017-12-14 14:07] LABS: URINE COLOR AMBER; URINE LEUK ESTERASE TRACE (NEGATIVE)
[2017-12-14 14:23] LABS: EPI CELLS FEW /HPF; URINE RBC 0-2 /hpf (0-3)
[2017-12-14] MEDS ORDERED: PHENAZOPYRIDINE HCL 100 MG TABLET (FP) PO ONE (14:30)
[2017-12-14] MEDS ORDERED: CEPHALEXIN MONOHYDRATE 500 MG CAPSULE (UD) PO ONE (14:30)
[2017-12-14] MEDS ORDERED: PHENAZOPYRIDINE HCL 100 MG TABLET (FP) ONE (14:32)
[2017-12-14] MEDS ORDERED: CEPHALEXIN MONOHYDRATE 500 MG CAPSULE (UD) ONE (14:33)
== END 2017-12-14 14:35 | disposition home or self-care (01) ==
LOC: FER 12:42
DX: N30.00 Acute cystitis without hematuria (principal); Z85.3 Personal history of malignant neoplasm of breast
CPT/HCPCS: 81003; 81015; 87086; 99282-25

== ENCOUNTER 2019-04-04 08:24 | Day surgery (SDC) | payer OTHER ==
[2019-04-04 08:38] VITALS: BMI 26.8
--- NOTE | 2019-04-04 09:17 | PDOC ---
History of Present Illness - General Chief Complaint: Pain Stated Complaint: ABDOMINAL PAIN,HERNIA Time Seen by Provider: 04/04/19 08:29 History Source: Patient Exam Limitations: No Limitations - History of Present Illness Initial Comments: 04/04/19 09:15 Valeria Murphy is a 53yF w PMhx breast cancer and chronic back pain presenting w periumbilical pain. Sudden onset of L lateral periumbilical pain 2 hrs ago while waiting for breast revision surgery w Dr Dangelo this morning. Told it was hernia, sent to ED for further evaluation. Denies fever, nausea/vomiting, SOB, chest pain, urinary, bowel movement changes. Past History - Past Medical History Allergies/Adverse Reactions: Allergies Allergy/AdvReac Type Severity Reaction Status Date / Time cat dander Allergy Intermediate NASAL Verified 04/04/19 08:39 CONGESTION/SNEEZING kiwi Allergy Intermediate Verified 04/04/19 08:39 No Known Drug Allergies Allergy Verified 04/04/19 08:39 surgical tape Allergy Rash Uncoded 04/04/19 07:21 Home Medications: Ambulatory Orders Oxycodone HCl/Acetaminophen [Percocet 5-325 mg Tablet] 1 - 2 tab PO Q6H PRN 06/21 Anemia: No Asthma: No Cancer: Yes (L breast 2015,SX--NO CHEMO/RT) Cardiac Disorders: No CVA: No COPD: No CHF: No Dementia: No Diabetes: No GI Disorders: No Disorders: No HTN: No Hypercholesterolemia: No Liver Disease: No Seizures: No Thyroid Disease: No - Surgical History Abdominal Surgery: Yes (tummy tuck) Appendectomy: No Cardiac Surgery: No Cholecystectomy: No Lung Surgery: No Neurologic Surgery: No Orthopedic Surgery: Yes (R knee arthroscopy Feb 14) - Psycho Social/Smoking Cessation Hx Smoking History: Never smoked Have you smoked in the past 12 months: No Hx Alcohol Use: No Drug/Substance Use Hx: No Substance Use Type: Alcohol, Prescribed Hx Substance Use Treatment: No Review of Systems - Review of Systems Constitutional: No: Chills, Fever HEENTM: No: Eye Pain, Nose Pain, Throat Pain, Mouth Pain Respiratory: No: Cough, Shortness of Breath Cardiac (ROS): No: Chest Pain, Edema, Palpitations, Syncope ABD/GI: No: Abdominal Distended, Constipated, Diarrhea, Nausea, Vomiting : No: Burning, Dysuria, Discharge, Frequency, Flank Pain, Hematuria Musculoskeletal: No: Back Pain, Joint Pain, Joint Swelling, Muscle Pain Integumentary: No: Bruising, Dryness, Erythema Neurological: No: Headache, Numbness, Seizure, Tingling, Tremors Psychiatric: No: Anxiety, Depression, Stressors Endocrine: No: Excessive Sweating, Flushing, Intolerance to Cold, Intolerance to Heat *Physical Exam - Vital Signs Last Vital Signs Temp Pulse Resp BP Pulse Ox 97.5 F L 58 L 19 117/82 98 04/04/19 08:25 04/04/19 08:25 04/04/19 08:25 04/04/19 08:25 04/04/19 08:25 - Physical Exam General Appearance: Yes: Nourished, Appropriately Dressed, Mild Distress HEENT: positive: EOMI, MIKI, Normal Voice, Hearing Grossly Normal. negative: Scleral Icterus (R), Scleral Icterus (L), Nasal Congestion, Rhinorrhea Respiratory/Chest: positive: Lungs Clear, Normal Breath Sounds. negative: Chest Tender, Respiratory Distress, Crackles, Rales, Rhonchi, Stridor, Wheezing Cardiovascular: positive: Regular Rate, S1, S2, Bradycardia. negative: Edema, Murmur Gastrointestinal/Abdominal: positive: Normal Bowel Sounds, Tender (mild tenderness L lateral periumbilical region), Flat, Soft, Hernia (4cm hernia L lateral periumbilical region, reduceable). negative: Distended, Guarding, Rebound Musculoskeletal: positive: Normal Inspection Extremity: positive: Normal Capillary Refill Integumentary: positive: Normal Color. negative: Petechiae, Rash Neurologic: positive: dag sprayer II-XII NML intact, Fully Oriented, Alert, Normal Mood/ Affect, Normal Response, Responsive. negative: Numbness, Confused, Disoriented ED Treatment Course - LABORATORY CBC & Chemistry Diagram: 04/04/19 08:40 04/04/19 08:40 Medical Decision Making - Medical Decision Making 04/04/19 09:47 CBC CMP coags T&S normal Valeria Murphy is a 53yF w PMhx breast cancer and chronic back pain presenting w periumbilical pain d/t periumbilical hernia (reduceable) Unlikely mesenteric ischemia (pain in proportion to exam) vs SBO (non distended AB). Blood labs normal. Talked to Dr Melgoza, agreed to do AB hernia repair w breast revision sx today. Cancelled CT AB. Admitted to [facility] Dr Melgoza for abdominal hernia and breast revision surgery. Discharge - Discharge Information Problems reviewed: Yes Clinical Impression/Diagnosis: Periumbilical hernia Condition: Stable - Follow up/Referral - Patient Discharge Instructions - Post Discharge Activity
[2019-04-04 09:24] LABS: ALBUMIN 3.9 g/dl (3.4-5.0); BILIRUBIN,TOTAL 0.5 mg/dl (0.2-1); CALCIUM 8.6 mg/dl (8.5-10); CREATININE 0.7 mg/dl (0.55-1.3); POTASSIUM 4.2 mmol/L (3.5-5.1); TOT PROT 7.2 g/dl (6.4-8.2)
[2019-04-04 09:28] LABS: BASO % 0.4 % (0-2.0); EOS % 2.2 % (0-4.5); HEMOGLOBIN 12.9 GM/dl (10.7-15.3); LYMPH % 43.9 % (8-40); MCHC 33.1 g/dl (32.0-36.0); MEAN CELL VOLUME 96.6 fl (80-96); MEAN PLT VOLUME 7.8 fl (7.5-11.1); MONO % 7.6 % (3.8-10.2); NEUT % 45.9 % (42.8-82.8); PLATELET COUNT 269 K/MM3 (134-434); RBC 4.04 M/mm3 (3.60-5.2); RDW 12.7 % (11.6-15.6); WHITE BLOOD COUNT 6.1 K/mm3 (4.0-10.8)
--- NOTE | 2019-04-04 09:29 | PDOC ---
Attending Attestation - Resident Resident Name: EstherJose - ED Attending Attestation I have performed the following: I have examined & evaluated the patient, The case was reviewed & discussed with the resident, I agree w/resident's findings & plan, Exceptions are as noted - HPI HPI: 04/04/19 10:58 53 years old with past medical history significant for prior breast surgery and zaki pereira is scheduled for revision of breast today in or when she developed a transiently incarcerated abdominal hernia severe pain resolved with time patient was sent in to the ED for evaluation pain has resolved no palpable hernia on examination small abdominal wall defect noted. - Physicial Exam PE: 04/04/19 10:58 Vitals: Triage Vital signs reviewed General Appearance: no acute distress, well nourished well developed, Head: Atraumatic, Cardiac: Regular rate and rhythym, no murmurs, no rubs, no gallops, Lungs: Clear to auscultation bilateral, good air movement bilaterally, Abdomen: Soft, non distended, normal bowel sounds, non tender to palpation, no hernia appreciated palpable defect felt in the left upper abdominal wall Extremities: Full range of motion to all extremities, no cyanosis, clubbing, or edema Skin: Warm and dry, no rashes or lesions, no rash, no petechiae Psych: normal mood, normal affect - Medical Decision Making 04/04/19 11:03 Well-appearing no apparent distress with likely incarcerated now resolved hernia Patient's bedside with surgery plan is to go to OR for correction of abdominal wall defect Patient medically cleared for surgery. Funds, need follow-up and strict return instructions discussed patient.
[2019-04-04] MEDS ORDERED: ACETAMINOPHEN 1000 MG/100 ML VIAL (NON FORMULARY) IVPB ONE (09:55)
[2019-04-04] MEDS ORDERED: ACETAMINOPHEN INJECTION 100 ML IVPB ONE (09:58)
[2019-04-04 10:48] LABS: INR 1.14 (0.82-1.09); PROTHROMBIN TIME (PATIENT) 12.7 SEC (10.2-13.0)
[2019-04-04] MEDS ORDERED: DEXAMETHASONE SOD PHOSPHATE 4 MG/1 ML VIAL ONE (11:15)
[2019-04-04] MEDS ORDERED: LIDOCAINE HCL/PF 2% SDV 5ML VIAL ONE (11:15)
[2019-04-04] MEDS ORDERED: ONDANSETRON 4 MG/2 ML VIAL ONE ×2 (11:15→12:50)
[2019-04-04] MEDS ORDERED: PROPOFOL 20 ML ONE (11:16)
[2019-04-04] MEDS ORDERED: MIDAZOLAM HCL 2 MG/2 ML SINGLE DOSE VIAL ONE (11:16)
[2019-04-04] MEDS ORDERED: SUCCINYLCHOLINE CHLORIDE 200 MG/10 ML SYRINGE ONE (11:16)
[2019-04-04] MEDS ORDERED: ROCURONIUM BROMIDE 50 MG/5 ML VIAL ONE (11:16)
[2019-04-04] MEDS ORDERED: ceFAZolin SODIUM 1 GM VIAL ONE (11:16)
[2019-04-04] MEDS ORDERED: oxyCODONE HCL 5 MG TABLET PO PRN ×2 (11:33)
[2019-04-04] MEDS ORDERED: ONDANSETRON 4 MG/2 ML VIAL IVPUSH PRN (11:33)
[2019-04-04] MEDS ORDERED: BUPIVACAINE HCL/PF 2.5 MG/ML - 30 ML VIAL IJ ONE ×2 (11:37→11:40)
[2019-04-04] MEDS ORDERED: LIDOCAINE HCL 1% PRESERVATIVE FREE - 30ML VIAL ONE (11:37)
[2019-04-04] MEDS ORDERED: LACTATED RINGERS SOLUTION 1,000 ML IV SCH (11:45)
[2019-04-04] MEDS ORDERED: KETOROLAC TROMETHAMINE 30 MG/1 ML VIAL ONE (11:51)
[2019-04-04] MEDS ORDERED: GUM MASTIC/STORAX/MSAL/ALCOHOL 1 DRP DROPSBTL MC ONE (12:05)
[2019-04-04 13:55] VITALS: TEMP 97.5
--- NOTE | 2019-04-04 14:08 | OP ---
DATE OF OPERATION: 04/04/2019 PREOPERATIVE DIAGNOSIS: Incarcerated umbilical hernia. POSTOPERATIVE DIAGNOSIS: Incarcerated umbilical hernia. PROCEDURE: Repair of the hernia with mesh. SURGEON: Tyrell Smith MD ANESTHESIA: General endotracheal intubation. Patient was admitted via the emergency room. Initially was admitted for the breast reconstruction and biopsy of the left side, but in the emergency room, patient was found to have abdominal pain and incarcerated hernia, which got reduced, but the patient was still symptomatic. After discussing with plastic surgeon and the breast surgeon, it was decided to go proceed with repair of the hernia 1st and then tackle the breast problem later. For this, the patient was brought to the operating room, and intravenous antibiotic was given. Since the patient had oral contrast, general endotracheal tube was administered, and incision was made at the umbilicus below the previous scar to prevent any skin necrosis, and a flap was created with a pig flap, and the hernia was identified, which was in the umbilicus. The omentum, which was incarcerated was put back into the abdominal cavity. All the adhesions to the abdominal wall were taken down. Once there was a clear space, 4.3-cm mesh, which was a dual mesh, was placed, and the 2 flaps, which was the Dexon part, was sutured to that fascia on 2 sides, and 2 additional sutures were taken to avoid any side protrusion of the omentum between the mesh and the abdominal wall. Once it was found to be adequate repair, the subcutaneous tissue and skin were closed. Patient went to the recovery room in stable condition. Marcaine was injected for pain management. TYRELL SMITH M.D. [id number] cc: MD Dr. Antolin Hankins
[2019-04-04 14:44] VITALS: PULSE 72
[2019-04-04 14:47] VITALS: BP 115/72
== END 2019-04-04 14:49 | disposition home or self-care (01) ==
LOC: FER 08:24 → FASU 10:33
PROVIDERS: ATTEND Surgery Vascular Surgery
PROC: 0WUF0JZ Supplement Abdominal Wall with Synthetic Substitute, Open Approach (ICD-10-PCS; principal; 2019-04-04 11:50)
DX: K42.0 Umbilical hernia with obstruction, without gangrene (principal)
CPT/HCPCS: 36415; 80053; 83690; 85025; 85610; 85730; 86850; 86900; 86901; 94760; 99284-25; J0131

== ENCOUNTER 2020-11-04 10:06 | Day surgery (SDC) | payer OTHER ==
[2020-10-31 16:52] VITALS: BMI 26.8
[2020-11-04] MEDS ORDERED: GENTAMICIN SO4 80 MG/2 ML VIAL ONE (12:23)
[2020-11-04] MEDS ORDERED: ceFAZolin SODIUM 1 GM VIAL ONE (12:23)
[2020-11-04] MEDS ORDERED: MIDAZOLAM HCL 2 MG/2 ML SINGLE DOSE VIAL ONE ×2 (12:31)
[2020-11-04] MEDS ORDERED: PROPOFOL 20 ML ONE (12:31)
[2020-11-04] MEDS ORDERED: ROCURONIUM BROMIDE 50 MG/5 ML SYRINGE ONE ×3 (12:32→14:28)
[2020-11-04] MEDS ORDERED: EPHEDRINE SULFATE/0.9% NACL/PF 50 MG/10 ML SYRINGE NR ONE (13:19)
[2020-11-04] MEDS ORDERED: BUPIVACAINE LIPOSOME/PF (EXPAREL) 266 MG/20 ML VIAL ONE (13:37)
[2020-11-04] MEDS ORDERED: NEOSTIGMINE METHYLSULFATE 0.5 MG/1 ML - 10 ML MDV ONE (16:03)
[2020-11-04] MEDS ORDERED: ONDANSETRON 4 MG/2 ML VIAL IVPB PRN (16:25)
[2020-11-04] MEDS ORDERED: oxyCODONE HCL 5 MG TABLET PO PRN ×3 (16:25→16:29)
[2020-11-04] MEDS ORDERED: PROMETHAZINE HCL 25 MG/1 ML VIAL IVPUSH PRN (16:29)
[2020-11-04] MEDS ORDERED: ONDANSETRON 4 MG/2 ML VIAL IVPUSH PRN (16:29)
[2020-11-04] MEDS ORDERED: LACTATED RINGERS SOLUTION 1,000 ML IV SCH (16:30)
[2020-11-04 19:37] VITALS: BP 129/80; PULSE 98; TEMP 97.9
== END 2020-11-04 19:37 | disposition home or self-care (01) ==
LOC: FASU 10:06
PROVIDERS: ATTEND Plastic Surgery
PROC: 0HWU0JZ Revision of Synthetic Substitute in Left Breast, Open Approach (ICD-10-PCS; principal; 2020-11-04 13:35)
PROC: 0HWT0JZ Revision of Synthetic Substitute in Right Breast, Open Approach (ICD-10-PCS; 2020-11-04 13:35)
DX: T85.44XA Capsular contracture of breast implant, initial encounter (principal); Z90.13 Acquired absence of bilateral breasts and nipples; Z85.3 Personal history of malignant neoplasm of breast
CPT/HCPCS: 88173; 88305-TC; 94760